=== PATIENT | male | born 1990 | race Caucasian/White ===

== ENCOUNTER 2021-06-13 09:51 | Emergency (ER) | payer BC, SELFPAY ==
[2021-06-13 09:51] VITALS: BP 141/92; PULSE 69; RESP 14; TEMP 36.2; O2SAT 97; BMI 21.8
--- NOTE | 2021-06-13 10:03 | US_ITS ---
STUDY: SCROTUM ULTRASOUND REASON FOR EXAM: Male, 30 years old. Left testicle pain TECHNIQUE: Ultrasound evaluation of the scrotum was performed with color Doppler and static root-scale imaging. COMPARISON: None. FINDINGS: RIGHT TESTICLE INTRATESTICULAR: There is a normal size of the right testicle. The right testicle measures 4 cm x 2.6 times by 2 cm. There is a homogenous echotexture. There is normal arterial and normal venous vascularity. There is no demonstrated right testicular mass or cyst. EXTRATESTICULAR: The epididymis is normal in size. The epididymis head measures 0.8 cm x 0.9 cm x 0.7 cm. There is normal vascularity of the epididymis. There is no demonstrated epididymal cystic structure. There is no demonstrated hydrocele. There is no demonstrated varicocele. There is no demonstrated extratesticular mass or cyst. LEFT TESTICLE INTRATESTICULAR: There is diffuse enlargement of the left testicle. The left testicle measures 6.5 cm x 4.8 cm x 4.5 cm. There is a heterogeneous echotexture. There is a 6.5 cm x 4.5 cm complex solid and cystic mass within the testes. A neoplastic process should be ruled out. There is increased arterial and increased venous vascularity. There is no demonstrated left testicular mass or cyst. EXTRATESTICULAR: The epididymis is normal in size. The epididymis head measures 1.1 cm x 1.6 cm x 1 cm. There is normal vascularity of the epididymis. There is no demonstrated epididymal cystic structure. There is a small hydrocele. There is no demonstrated varicocele. There is no demonstrated extratesticular mass or cyst. US/Testicular with Arterial Flow IMPRESSION: Enlarged testicle with a large testicular complex solid and cystic mass. Increased blood flow. A neoplastic process should be ruled out. Small left hydrocele. Electronically Signed: Zhang Ardon MD at 11:31 EST , Service support ,
--- NOTE | 2021-06-13 10:04 | EX.ED.GUMALE ---
HPI History of Present Illness Chief Complaint: Male Pain/Injury Detail of Chief Complaint: Left testicle pain and swelling Informant: patient Narrative Narrative: Patient presents to the emergency department with increased swelling to his left testicle for about a week. Patient states that the testicles become more painful. Patient tells me that about a year ago he had a bout of epididymitis and was treated with antibiotics but states that he is never quite been the same since that time. Patient has noticed some gradual and progressive increased swelling to the left testicle since that time. He denies any fevers. He denies dysuria. He did describe some lower abdominal discomfort and pain into his back. He denies any fevers. Patient denies any trauma to his testicle. PFSH PFSH Home Medications hydrocodone-acetaminophen 1 tab PO Q4H PRN PRN 3 Days #15 tablet 06/13/21 [Rx Last Taken Unknown] Allergy/AdvReac Type Severity Reaction Status Date / Time No Known Allergies Allergy Verified 06/13/21 09:53 Social History Smoking Status: Current some day smoker tobacco type: cigarettes ROS ROS ED Constitutional Constitutional ED: Reports systems reviewed and no addt'l complaints, except as documented; Denies body ache(s), change in weight or chills Eyes Eyes: Denies acute decrease in peripheral vision, change in vision, double vision or loss of vision ENT ENT ED: Reports none; Denies ear pain, lip swelling, loss taste/smell, neck pain, otalgia or sore throat Cardiovascular Cardiovascular: Reports none; Denies abdominal pain, chest pain with activity, leg edema, lightheadedness, palpitations, rapid heart rate or syncope Respiratory/Chest Respiratory/Chest: Reports none; Denies change in mental status, dry cough, dyspnea, hemoptysis, shortness of breath at rest or shortness of breath with exertion Gastrointestinal Gastrointestinal: Reports none; Denies abdominal pain, change in stool character, diarrhea, hematemesis, hematochezia, melena, rectal bleeding or vomiting Genitourinary Genitourinary ED: Reports none and other Details: Left testicle pain and swelling ; Denies abdominal discomfort, anuria, dysuria, genital pain or polyuria Musculoskeletal Musculoskeletal: Reports none; Denies arthralgias, back pain, difficulty walking, extremity pain, muscle weakness or myalgias Integumentary Reports none; Denies abscess or rash Neurologic Neurologic: Reports none; Denies abnormal gait, confusion, focal weakness, frequent falls, headache(s), loss of vision, numbness, paresthesias, radicular pain, vertigo or weakness Psychiatric Psychiatric: Reports systems reviewed and no addt'l complaints, except as documented and none; Denies behavioral changes, confusion, difficulty concentrating, hallucinations, suicidal ideation, tactile hallucinations or visual hallucinations Endocrine Endocrinology: Denies none, cold intolerance, excessive sweating, fatigue or heat intolerance Hematologic/Lymphatic Hematologic/Lymphatic: Reports none; Denies anemia, easy bleeding or easy bruising Allergic/Immunologic Allergic/Immunologic ED: Denies as per HPI, none, lip swelling, mouth swelling, throat swelling, tongue swelling or hives EXAM Physical Exam Const Vital Signs: 06/13/21 09:51 Temperature 97.2 F L Temperature Source Temporal Pulse Rate 69 Respiratory Rate 14 Blood Pressure 141/92 H Blood Pressure Mean 108 Pulse Ox 97 Oxygen Delivery Method Room Air Positive well nourished and well developed General Appearance ED: well developed and NAD HEENT Reports TM's clear and moist mucous membranes normocephalic and atraumatic; Negative for trauma or tenderness Tympanic Membrane ED: Yes TM's clear Eyes PERRL and EOMs intact bilaterally General Eye ED: Negative for pale conjunctiva or scleral icterus Neck no lymphadenopathy, supple and no JVD General: Negative for tenderness Chest Wall inspection of chest normal and palpation of chest normal Chest: Negative for tenderness Resp normal respiratory effort and clear to auscultation bilaterally Effort and Inspection: Negative for respiratory distress or pain with movement Auscultation: Negative for rhonchi, wheezes or diminished lung sounds Cardio regular rate, regular rhythm, S1 normal heart sound, S2 normal heart sound and no murmurs Peripheral Pulses: pulses 2+ throughout GI normal to inspection, nondistended, normoactive bowel sounds, soft to palpation, non-tender, non-distended and no masses Narrative: Circumcised male. Patient has significant tenderness over the left testicle which is enlarged and firm to palpation. He is got some tenderness over the left epididymis as well. No cellulitis noted. Back/Spine no CVA tenderness and no thoracic nor lumbar tenderness Extremity normal to inspection General Extremety ED: Negative for edema General Extremity: Negative for edema Neuro oriented x3, CN's II-XII intact bilaterally, no sensory deficits noted and gait normal Sensorium / Orientation: awake, alert, oriented to person, oriented to place and oriented to time Motor Exam: strength 5/5 throughout and strength abnormal Psych mental status grossly normal Skin no rashes or lesions noted and no wounds MDM MDM MDM Narrative Medical decision making narrative: IV line established on arrival. Patient was noted on ultrasound to have enlarged testicle with large testicular complex solid and cystic mass. I do not have urology available on-call today. I will refer him to local urologist for follow-up and I will have him call the office to make a follow-up appointment. He will need further work-up and evaluation of this testicular mass to rule out malignancy. Patient understands this and will follow up. He will be given a prescription for [place] for pain. Lab Data Attestation: I reviewed the patient's lab results. Labs: Laboratory Results - last 24 hr 06/13/21 06/13/21 06/13/21 10:20 10:25 10:25 WBC 7.6 RBC 5.36 Hgb 16.1 Hct 46.4 MCV 86.6 MCH 30.0 MCHC 34.7 RDW Std Deviation 36.4 RDW Coeff of Phil 11.4 L Plt Count 411 MPV 8.5 Immature Gran % (Auto) 0.400 Neut % (Auto) 75.3 H Lymph % (Auto) 14.6 L Dillon % (Auto) 7.8 Eos % (Auto) 1.5 Baso % (Auto) 0.4 Absolute Neuts (auto) 5.7 Absolute Lymphs (auto) 1.10 Nucleated RBC % 0 Sodium 137 Potassium 3.8 Chloride 105 Carbon Dioxide 26.0 Anion Gap 6 BUN 19 H Creatinine 1.06 Estim Creat Clear Calc 99.45 Est GFR (MDRD) Af Amer 105 Est GFR (MDRD) Non-Af 87 BUN/Creatinine Ratio 17.9 Glucose 99 Calcium 9.5 Urine Color Yellow Urine Clarity Clear Urine pH 6.5 Ur Specific [place] 1.010 Urine Protein Negative Urine Glucose (UA) Normal Urine Ketones Negative Urine Occult Blood Negative Urine Nitrite Negative Urine Bilirubin Negative Urine Urobilinogen Normal Ur Leukocyte Esterase Negative Urine RBC 0 SEEN Urine WBC 0 SEEN Ur Squamous Epith Cells 0 SEEN Urine Bacteria 0 SEEN Urine Mucus 0 SEEN Radiography Diagnostic Testing: Clinical Impression(s) from Imaging Studies Testicular Ultrasound 06/13/21 10:03 IMPRESSION: Enlarged testicle with a large testicular complex solid and cystic mass. Increased blood flow. A neoplastic process should be ruled out. Small left hydrocele. Electronically Signed: Zhang Ardon MD at 11:31 EST , Service support , Discharge Plan Triage Chief Complaint: Male Pain/Injury ED Provider: Philomena Mendez Dx/Rx/DC Orders Clinical Impression: Mass of left testicle Prescriptions: New hydrocodone-acetaminophen [hydrocodone-acetaminophen] 1 TABLET tablet 1 tab PO Q4H PRN PRN (Reason: Pain) 3 Days Qty: 15 RF: 0 Primary Care Provider: Care Physician,No Primary Referrals: Juan Hughes MD [STAFF PHYSICIAN] - 3-5 Days Care Physician,No Primary [Primary Care Provider] - Activity Restrictions/Additional Instructions: You have a mass in your left testicle and will need further work-up and evaluation by urology to rule out malignancy or cancer Disposition Disposition: Home, Self Care
[2021-06-13 10:37] LABS: Bacteria 0 SEEN /hpf (None Seen); Mucous, Urine 0 SEEN /hpf (<or=2+); Red Blood Cells-Urine 0 SEEN /hpf (0-5); Squamous Epithelial Cells - UA 0 SEEN /hpf (0-5); White Blood Cells 0 SEEN /hpf (0-5)
[2021-06-13 10:39] LABS: Absolute Neutrophil Count 5.7 X10^3/uL (2.0-7.7); Basophil# 0.03 X10^3/uL; Basophil% 0.4 % (0-1); Eosinophil# 0.11 X10^3/uL; Eosinophils% 1.5 % (0-5); Hematocrit 46.4 % (40-54); Hemoglobin 16.1 g/dL (13.0-16.5); Lymphocyte % 14.6 % (19-41); Mean Corp Hgb Conc 34.7 g/dL (32-36); Mean Corpuscular Volume 86.6 fL (80-94); Mean Platelet Vol. 8.5 fl (6.2-12.0); Monocyte# 0.59 X10^3/uL; Monocyte% 7.8 % (0-10); NRBC Flagged by Analyzer 0 % (0-5); Neutrophil % 75.3 % (47-70); Platelet Count 411 K/mm3 (150-450); RBC Distribution Width CV 11.4 % (11.6-14.6); RBC Distribution Width SD 36.4 fl (35.1-43.9); Red Blood Count 5.36 M/mm3 (4.6-6.2); White Blood Count 7.6 K/mm3 (4.4-11.0)
[2021-06-13 10:41] LABS: Color, Urine Yellow (Yellow); Glucose, Dipstick Normal (Normal); Ketone-Dipstick Negative (Negative); Leukocyte Esterase-Dipstick Negative /ul (Negative); Nitrite-Dipstick Negative (Negative); Occult Blood-Urine Negative /ul (Negative); Protein-Dipstick Negative (Negative); Urine Bilirubin Dipstick Negative (Negative); Urine Clarity Clear (Clear); Urine Urobilinogen Normal (Normal); Urine pH 6.5 (5.0 - 8.0)
[2021-06-13 10:59] LABS: Anion Gap 6 (5-15); BUN 19 mg/dL (7-18); BUN/Creat Ratio 17.9 RATIO (10-20); Calcium,Total 9.5 mg/dL (8.5-10.1); Chloride 105 mmol/L (98-107); Creatinine, Serum 1.06 mg/dL (0.70-1.30); EST Glomerular Filtration Rate 87 mL/min (>60); Est Glom Filt Rate - Afr Amer 105 mL/min (>60); Estimated Creatinine Clearance 99.45 ml/min; Glucose 99 mg/dL (74-106); Potassium 3.8 mmol/L (3.5-5.1); Sodium Level 137 mmol/L (136-145)
[2021-06-13 12:14] VITALS: BP 144/94; PULSE 78
== END 2021-06-13 12:20 | disposition home or self-care (01) ==
PROVIDERS: Emergency Provider Emergency Medicine
DX: N50.9 Disorder of male genital organs, unspecified (principal); N43.3 Hydrocele, unspecified; N50.812 Left testicular pain; F17.210 Nicotine dependence, cigarettes, uncomplicated
CPT/HCPCS: 76870; 80048; 81001; 85025; 87086; 93976; 99284; J7030

== ENCOUNTER → 2021-06-14 16:36 | Outpatient (CLI) | payer BC, SELFPAY ==
[2021-06-14 17:05] LABS: Hematocrit 46.7 % (40-54); Mean Corp Hgb Conc 34.3 g/dL (32-36); Mean Corpuscular Volume 87.6 fL (80-94); Mean Platelet Vol. 8.4 fl (6.2-12.0); Platelet Count 439 K/mm3 (150-450); RBC Distribution Width CV 11.7 % (11.6-14.6); RBC Distribution Width SD 37.4 fl (35.1-43.9); Red Blood Count 5.33 M/mm3 (4.6-6.2); White Blood Count 8.7 K/mm3 (4.4-11.0)
[2021-06-14 17:56] LABS: Anion Gap 9 (5-15); BUN 21 mg/dL (7-18); BUN/Creat Ratio 19.3 RATIO (10-20); Calcium,Total 9.3 mg/dL (8.5-10.1); Chloride 101 mmol/L (98-107); Creatinine, Serum 1.09 mg/dL (0.70-1.30); EST Glomerular Filtration Rate 84 mL/min (>60); Est Glom Filt Rate - Afr Amer 102 mL/min (>60); Glucose 91 mg/dL (74-106); LDH 270 U/L (87-241); Potassium 3.6 mmol/L (3.5-5.1); Sodium Level 137 mmol/L (136-145)
[2021-06-16 11:12] LABS: HCG BETA-SUBUNIT QUANT. 16 mIU/mL (0-3)
== END ==
PROVIDERS: Visit Provider Urology
DX: N50.9 Disorder of male genital organs, unspecified (principal)
CPT/HCPCS: 36415; 80048; 82105; 83615; 84702; 85027

== ENCOUNTER → 2021-06-19 09:44 | Outpatient (CLI) | payer BC, SELFPAY ==
[2021-06-19 15:10] LABS: Specimen Processing Control PASS
== END ==
PROVIDERS: Referring Provider Urology; Visit Provider Urology
DX: U07.1 COVID-19 (principal)
CPT/HCPCS: 87635; C9803; U0005; U0003

== ENCOUNTER 2021-06-20 06:56 | Observation (INO) | payer BC, SELFPAY ==
[2021-06-20] VITALS (9 sets, daily range): BP systolic 121–155; BP diastolic 70–83; PULSE 75–103; RESP 16–18; TEMP 36.8–38.3; O2SAT 96–100; BMI 21.2; BMI 20.8
--- NOTE | 2021-06-20 | TEST_PTH ---
PATIENT: ELOISE JO LOC: MS3 U#:[id number] AGE/SX: 30/M ROOM: MN315 RE06/20/[address]: Dr. Juan Hughes MD : 1990 BED: 1 DIS: 06/20/2021 SPEC #: [id number] RECD: 06/21/21 10:19 STATUS: MONICA MAGDA #: [id number] MELISSA: 06/20/21 00:[address]: Juan Hughes DEPT: SURGICAL PATHOLOGY RECD BY: Lexis Chowdhury ENTERED: 06/21/21 10:34 SP TYPE: TESTICLE OTHR DR: No Primary Care Phys Tissues: Testis, NOS Procedures: Surgery Specimen Level HEADER OPERATION: Left radical inguinal orchiectomy PRE-OP DIAGNOSIS: Left testicular mass TISSUE SUBMITTED: Left testicle MICROSCOPIC DIAGNOSIS Left testicle, radical orchiectomy: Nonseminomatous germ cell tumor. Synoptic report to follow. AM:patricia 06/26/2021 COMMENT Immunohistochemistry ([id number]) supports the above diagnosis. Additional immunohistochemical stains and complete synoptic report will soon follow. This case was discussed with Dr. Hughes by Dr. Cameron 06/26/21. MICROSCOPIC DESCRIPTION Slides are reviewed. GROSS DESCRIPTION Received in fixative is one container labeled with the patient's name and designated left testicle. The specimen consists of a testis surrounded by soft tissue. The specimen is aggregate weighs 136 gm. The specimen measures 8 x 7 x 5 cm. A portion of spermatic cord and adjacent soft tissue extends for a distance of 6 cm and has a diameter of 2 cm. Serial sectioning reveals the testis to be involved by a rubbery, white mass that occupies greater than 90% of the testis. Distinct rete testis or epididymis are not grossly identified. The lesion appears to be confined to the testis with no involvement of testicular membranes. The external surface has been inked in black ink. The mass measures 6.5 x 5 x 4 cm. The cut surface of the mass is fleshy. No areas of necrosis or hemorrhage are identified within the mass. Soft Water [employer]ic sections are submitted in ten cassettes as follows: 1 ? spermatic cord and soft tissue at margin of resection, 2 ? tumor with presumed adjacent epididymis, 3-10 ? graphic art sales representative sections of mass and adjacent uninvolved testicular tissue. / AM:patricia 06/22/21 TC:0 CPT: 07802 ADDENDUM ADDENDUM ADDENDUM ADDENDUM ADDENDUM ADDENDUM ADDENDUM ADDENDUM ADDENDUM ADDENDUM ADDENDUM ADDENDUM ADDENDUM ADDENDUM ADDENDUM ADDENDUM ADDENDUM ADDENDUM ADDENDUM ADDENDUM ADDENDUM ADDENDUM ADDENDUM ADDENDUM ADDENDUM ADDENDUM ADDENDUM ADDENDUM ADDENDUM ADDENDUM ADDENDUM ADDENDUM ADDENDUM ADDENDUM ADDENDUM 07/10/2021 12:24 ADDENDUM 07/10/2021 12:24 ADDENDUM 07/10/2021 12:24 ADDENDUM 07/10/2021 12:24 ADDENDUM 07/10/2021 12:24 SURGICAL PATHOLOGY CANCER CASE SUMMARY (SYNOPTIC REPORT) Specimen: Left testis, radical orchiectomy Tumor focality: Unifocal Tumor Size: 6.5 x 5 x 4 cm 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 Embryonal carcinoma: Approximately 5% Intratubular germ cell neoplasia: Germ cell neoplasia in situ is focally present. Tumor extension: Tumor limited to testis. Margins: Spermatic cord margin: Free of carcinoma Other margins: Uninvolved by tumor Lymphvascular invasion: Not identified Regional lymph nodes: No lymph nodes found. Serum tumor markers: LD ? 270 U/L AFP ? 977 ng/mL Beta HCG ? 16 mIU Additional pathologic findings: Mild chronic inflammation. Ancillary studies; Immunohistochemistry ([id number]) PATHOLOGIC STAGE: T2 Nx Mx The above summary is in compliance with [employer] of [place] Path[employer] (CAP) Cancer Protocols Checklist and [place] Joint Committee on Cancer (AJCC), Staging Manual, 8th Ed. The rete testis and cauda epididymis are not identified and presumed to be involved by carcinoma. The tumor is confined to the testis. This case was seen in consultation with Dr. Andrews of [employer] [employer]. The complete consultative report is viewable in EMR. Case has been reviewed in consultation with Dr. Swan who concurs with the above diagnosis. IDC:SJ
--- NOTE | 2021-06-20 | IMM_PTH ---
PATIENT: ELOISE JO LOC: MS3 U#:[id number] AGE/SX: 30/M ROOM: SC315 RE06/20/[address]: Dr. Juan Hughes MD : 1990 BED: 1 DIS: 06/20/2021 SPEC #: [id number] RECD: 06/25/21 14:19 STATUS: MONICA MAN #: [id number] MELISSA: 06/20/21 00:[address]: Juan Hughes DEPT: IMMUNOHISTOCHEMISTRY RECD BY: Anjali Jackson ENTERED: 06/25/21 14:20 SP TYPE: IMMUNO OTHR DR: No Primary Care Phys Tissues: Testis, NOS Procedures: JENNA (add) Pankeratin (add) GATA3 (add) CD30 (initial) PHYSICIAN & INSTITUTION [place] [id number] SPECIMEN INFORMATION: Tissue Source: Left testicle Clinical Info: Left testicular mass Specimen Number: [id number] #8 CPT code: 69884, 12614 x3 METHODOLOGY: Deparaffinized sections of prefer/formalin-fixed tissue or PAP/DQ stained slides are incubated with monoclonal/polyclonal antibodies/oligonucleotide probes. Localization is made via biotin free immunoperoxidase method. Appropriate controls are performed and reacted as expected. Results on target cell population are indicated in the following table: RESULTS: ANTIBODY / CLONE RESULT Block 8 CD30 (Ross-H2) positive, dim AE1-3 (AE1/AE3/PCK26) positive JENNA (E29) positive, focal GATA3 (L50-823) positive, focal These tests were developed and their performance characteristics determined by [facility]. They may not have been cleared or approved by the U.S. Food and Drug Administration. The FDA has determined that such clearance or approval is not necessary. The above immunohistochemical/dualISH markers are ordered and reviewed by the Pathologist. 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 AM:patricia 07/10/2021 Case has been reviewed in consultation with Dr. Swan who concurs with the above diagnosis. IDC:[id number]
--- NOTE | 2021-06-20 07:42 | EX.ED.GUMALE ---
HPI History of Present Illness Chief Complaint: Male Pain/Injury Informant: patient Pain Onset: Days Context: Gradual Onset Timing: Continuous Current Severity: Moderate Maximum Severity: Severe Narrative Narrative: 30-year-old male history of strongly suspected left testicular cancer from a known left testicular mass that was diagnosed a week or so ago. He is followed up with urology who is actually planning on doing his surgery and doing orchiectomy today. Patient's had worsening pain over the last several days. He is on Percocet at home and says not controlling his pain. He denies any dysuria. He denies other complaints. Prior similar symptoms: Yes Recent Illness/Hospitalization: No PFSH PFSH Medical History High cholesterol Testicle cancer Home Medications hydrocodone-acetaminophen 1 tab PO Q4H PRN PRN 3 Days #15 tablet 06/13/21 [Rx Last Taken Unknown] Allergy/AdvReac Type Severity Reaction Status Date / Time No Known Allergies Allergy Verified 06/13/21 09:53 Social History Smoking Status: Current some day smoker tobacco type: cigarettes ROS ROS ED ROS Narrative Denies recent illness. Review of Systems ROS Unobtainable: Denies due to encephalopathy Constitutional Constitutional ED: Reports fever(s) and subjective Eyes Eyes: Denies change in vision ENT ENT ED: Denies ear pain or sore throat Cardiovascular Cardiovascular: Denies chest pain Respiratory/Chest Respiratory/Chest: Denies cough or dyspnea Gastrointestinal Gastrointestinal: Denies abdominal pain, diarrhea, nausea or vomiting Genitourinary Genitourinary ED: Denies dysuria Musculoskeletal Musculoskeletal: Denies myalgias Integumentary Denies rash Neurologic Neurologic: Denies headache(s) Psychiatric Psychiatric: Denies depression Endocrine Endocrinology: Denies polyuria Hematologic/Lymphatic Hematologic/Lymphatic: Denies easy bruising Allergic/Immunologic Allergic/Immunologic ED: Denies urticaria EXAM Physical Exam Narrative Exam Narrative: 3-year-old male no acute distress vital signs stable afebrile. HEENT exam unremarkable. Neck nontender no lymphadenopathy. Lungs clear to auscultation bilaterally. Heart regular rhythm no murmur. Abdomen soft nontender tender, nondistended, normal bowel sounds no peritoneal signs. Tender exam circumcised male right hemiscrotum unremarkable nontender left hemiscrotum enlarged, firm mass with tenderness. No cellulitis. No inguinal lymphadenopathy. Exam is consistent with a left testicular mass very possibly testicular cancer. Moving all 4 extremities. Nontender no edema. Neurologically is awake and alert. Const Vital Signs: 06/20/21 06:57 Temperature 98.2 F Temperature Source Oral Pulse Rate 96 Respiratory Rate 18 Blood Pressure 155/83 H Blood Pressure Mean 107 Pulse Ox 100 Oxygen Delivery Method Room Air Positive well nourished and well developed; Negative for obese, cachectic, contractures or unkempt General Appearance ED: well developed and NAD; Negative for unkempt, cachectic, contractures or pallor Nutritional Appearance: Negative for cachectic or obese HEENT Reports moist mucous membranes normocephalic and atraumatic; Negative for trauma or tenderness Eyes PERRL and EOMs intact bilaterally General Eye ED: Negative for pale conjunctiva or scleral icterus Neck no lymphadenopathy, supple and no JVD General: Negative for tenderness Resp normal respiratory effort and clear to auscultation bilaterally Auscultation: Negative for rales, rhonchi or wheezes Cardio regular rate, regular rhythm, S1 normal heart sound, S2 normal heart sound and no murmurs GI non-tender, non-distended and no masses Auscultation: normoactive bowel sounds; Negative for hyperactive bowel sounds Palpation: soft Rectal Exam: Negative for tenderness no CVA tenderness Penis: normal penis, circumcised and mass; Negative for uncircumcised, condyloma, corporal disruption or ecchymosis Meatus: meatus normal Scrotum: testes descended bilaterally, scrotal swelling and scrotal mass Back/Spine no CVA tenderness Extremity normal to inspection General Extremety ED: Negative for edema or tenderness General Extremity: Negative for edema Neuro oriented x3, moves all extremities and no focal motor deficits Sensorium / Orientation: alert, oriented to person, oriented to place and oriented to time Motor Exam: strength 5/5 throughout Psych mental status grossly normal Appearance: Negative for unkempt Skin General Skin Exam: Negative for jaundice or pallor Lesions: no lesions Rashes: no rashes MDM MDM MDM Narrative Medical decision making narrative: 30-year-old male pending orchiectomy for strongly suspected left testicular cancer with a known mass. We treated IV morphine. I will speak to his urologist about sending him down to the preop area once we are done with him in the emergency department. I spoke to Dr. Henrry Hughes and the patient will be admitted to his service pending his surgery today and further work-up for suspected testicular cancer. Discharge Plan Dx/Rx/DC Orders Clinical Impression: Mass of left testicle, Testicular pain Disposition Disposition: Acute Care Hospital [facility]
[2021-06-20] MEDS: Ondansetron 4 MG/2 ML Vial IV (07:48)
[2021-06-20] MEDS: morphine 10 MG/ML Syringe IV (07:48)
--- NOTE | 2021-06-20 08:23 | NURSING ---
MED SURG BEFORE SURGERY SHAI TESTICULAR CA, PAIN
--- NOTE | 2021-06-20 08:38 | CT_ITS ---
STUDY: CT ABDOMEN AND PELVIS WITH CONTRAST REASON FOR EXAM: Male, 30 years old. Testicle mass and elevated markers RADIATION DOSAGE (If Supplied By Facility): CTDIvol = ( 14.91 ) mGy, DLP = ( 633.96 ) mGycm TECHNIQUE: Transaxial images were obtained from the dome of the diaphragm to the symphysis pubis without oral contrast. IV 100mL Isovue-370 was administered. Sagittal and coronal images were reconstructed. Individualized dose optimization techniques were used for this CT. COMPARISON: None. FINDINGS: The visualized lung bases are unremarkable. The visualized portions of the heart are within normal limits. Normal liver. Normal gallbladder and extrahepatic biliary system. Normal spleen. Normal pancreas. Normal bilateral adrenal glands. Normal right kidney. Normal left kidney. Normal visualized stomach. Normal small intestine. There are multiple colonic diverticula consistent with diverticulosis. The appendix is visualized and appears normal. Normal abdominal aorta. Normal inferior vena cava. There is retroperitoneal lymphadenopathy with enlarged nodes greater than 10-15mm in the short axis. Normal urinary bladder. Complex heterogeneous enhancing mass in the left hemiscrotum in keeping with patient''s history of a left testicular carcinoma. Small left hydrocele. Normal abdominal wall. Normal osseous structures. CT/Abdomen/Pelvis W IV Cont ONLY IMPRESSION: There is evidence of pathologic retroperitoneal lymph adenopathy. Heterogeneous enhancing mass in the left testicle with a small hydrocele. Electronically Signed: Zhang Ardon MD at 9:32 EST , Service support ,
[2021-06-20] MEDS: morphine 8 MG/ML Syringe IV (10:56)
--- NOTE | 2021-06-20 16:33 | NURSING ---
PT TAKEN TO OR AT 1621
[2021-06-20] MEDS: Lactated Ringers 1,000 ML 15 ML IV (16:45)
[2021-06-20] MEDS: Bupivacaine Mpf 0.5% 30 ML VIAL (16:56)
--- NOTE | 2021-06-20 17:39 | PCM.HP.STD ---
HPI - General General Date of Admission: 06/20/21 HPI Narrative ELOISE JO, is a 30 M who presents with covid ++ fever and recent mass in the left testicle admitted to hospital for furthe care, going to surgery today for orchiectomy and will do CT scan for staging [facility] Medical History High cholesterol Testicle cancer Home Medications hydrocodone-acetaminophen 1 tab PO Q4H PRN PRN 3 Days #15 tablet 06/13/21 [Rx Last Taken Unknown] oxycodone-acetaminophen [Endocet] 1 tab PO Q6H PRN 7 Days #14 tab 06/20/21 [Rx Last Taken Unknown] Allergy/AdvReac Type Severity Reaction Status Date / Time No Known Allergies Allergy Verified 06/13/21 09:53 Social History Smoking Status: Current some day smoker tobacco type: cigarettes ROS ROS Narrative New constant back pain. Vital Signs Vital Signs Vital Signs: 06/20/21 06:57 06/20/21 09:10 06/20/21 10:48 Temperature 98.2 F 98.2 F Temperature Source Oral Oral Pulse Rate 96 84 75 Respiratory Rate 18 18 16 Blood Pressure 155/83 H 148/72 H 135/80 H Blood Pressure Mean 107 97 98 Blood Pressure Source Blood Pressure Position Blood Pressure Location Pulse Ox 100 100 99 Oxygen Delivery Method Room Air Room Air Room Air 06/20/21 16:09 Temperature 101.0 F H Temperature Source Oral Pulse Rate 97 Respiratory Rate 16 Blood Pressure 129/79 H Blood Pressure Mean 95 Blood Pressure Source Monitor Blood Pressure Position Supine Blood Pressure Location Right Arm Pulse Ox 97 Oxygen Delivery Method Room Air Weight Weight: 65.998 kg Body Mass Index (BMI) 20.8 Physical Exam Narrative large hard mass in the left testicle rest of exam normal. Results Radiology Impression Abdomen/Pelvis CT 06/20/21 08:38 IMPRESSION: There is evidence of pathologic retroperitoneal lymph adenopathy. Heterogeneous enhancing mass in the left testicle with a small hydrocele. Electronically Signed: Zhang Ardon MD at 9:32 EST , Service support , Assessment & Plan Assessment/Plan (1) Mass of left testicle: (2) Testicular pain:
--- NOTE | 2021-06-20 17:41 | PCM.DC ---
Discharge Instructions Diet Discharge Diet: No restrictions Activity Discharge Activity: May Not Drive (while taking narcotic pain medications.) Lifting Restrictions: no lifting > 10 lbs Dressing / Incision Call your doctor if you observe: Fever of 101 or Higher Follow Up Care Please Follow Up With: Juan Hughes MD Test Results: will call you with test results and arrange for further care for testicle cancer Discharge Plan Admission Admit Date/Time: 06/20/21 08:38 Primary Reason for Your Visit: covid and testicle cancer Attending Provider: Juan Hughes Primary Care Provider: Care Physician,No Primary Discharge Orders/Prescriptions Prescriptions: New oxycodone-acetaminophen [Endocet] 5-325 mg tablet 1 tab PO Q6H PRN (Reason: pain) 7 Days Qty: 14 RF: 0 No Action hydrocodone-acetaminophen [hydrocodone-acetaminophen] 1 TABLET tablet 1 tab PO Q4H PRN PRN (Reason: Pain) 3 Days Qty: 15 RF: 0 Referrals / Follow Up: Juan Hughes MD [STAFF PHYSICIAN] - Care Physician,No Primary [Primary Care Provider] - Disposition Discharge Orders: Discharge Patient (Routine); Ordered 06/20/21 Ordered By: Dr. Juan Hughes
--- NOTE | 2021-06-20 17:43 | OP.PCM_ITS ---
Report of Operation Date of Procedure: 06/20/21 Pre-Operative Diagnosis: Left hard testicle mass, Abnormally elevated alpha-fet oprotein and beta-hCG and LDH, New back pain Post-Operative Diagnosis: Same Surgery/Procedure Performed:: Left radical orchiectomy Description of Surgical Findings:: Patient was seen in the preoperative area, he has an abnormal left testicle which on exam is abnormal and also has a ultrasound is abnormal on the left side. Because of this we discussed the potential risk for malignancy and working to proceed with a radical orchiectomy on the left side. He understands is possible that the testicle even the looks abnormal and feels abnormal may not be cancerous it could be scar tissue it could be inflammation or infection. He understands no guarantee that it is cancer. Also there is no guarantees that if we remove the testicle and he has cancer is cured and the patient may require more treatments such as chemotherapy and radiation if he does have testicle cancer. Preoperative tumor markers were drawn. We discussed the risk of the procedure including risk of getting a hernia at the site of surgery, infection or bleeding. We also discussed the possibility of low testosterone level and infertility with one testicle. Patient was taken back to the operating room at the smooth induction of anesthesia. The penis and genitals were prepped and draped in usual sterile fashion, the abdomen was shaved as well as the testicles were shaved. The side of the orchiectomy which is the left side was marked. A timeout was performed. I then made a inguinal incision on the left side, dissected through the skin superficial fat Pratik's fascia with it was then incised there was a small blood vessel across Pratik's fascia that was cauterized and suture-ligated. The I then came across the top of the inguinal canal and opened up the inguinal canal with a joker. We then encircled the blood vessels and performed high ligation of the testicle I then dissected out the testicle on the left side and delivered it from the testicle through the inguinal incision. A very small incision in the scrotum was created with dissecting out the mass this was closed with chromic stitches, there was no violation of the testicle mass. We then dissected using electrocautery to free the testicle from the scrotum and transected through the gubernaculum. And the testicle was placed into a container and sent to pathology. We then made sure that the vessels were clear and there were not bleeding we irrigated the wound we closed the anterior layer of the inguinal canal with interrupted stitches and then we closed the Pratik's fascia and then closed the skin with subcuticular stitches. All needles stitches were accounted for. There was a complete count at the end of the case after closure. Patient was taken back to the PACU in stable condition. Surgeon: Ellen Type of Anesthesia: General Admit VTE Documentation VTE Present on Admission: No VTE Mechan Device Prophylaxis: SCD's VTE Pharm Prophylaxis ordered?: No
--- NOTE | 2021-06-20 19:51 | NURSING ---
AMBULATED TO BR. DRANK SOME WATER. ABLE TO URINATE W/OUT DIFFICULTY.
== END 2021-06-20 20:49 | disposition home or self-care (01) ==
LOC: ED 07:48 → MS2 12:41 → MS3 16:15
PROVIDERS: Admitting Provider Urology; Emergency Provider Emergency Medicine; Visit Provider Urology
PROC: (CPT 54520; principal; 2021-06-20 09:55)
DX: C62.92 Malignant neoplasm of left testis, unspecified whether descended or undescended (principal); U07.1 COVID-19; E78.00 Pure hypercholesterolemia, unspecified; F17.210 Nicotine dependence, cigarettes, uncomplicated
CPT/HCPCS: 54530; 74177; 88309; 88341; 88342; 96374; 96375; 96376; 99218; 99284; 99406; J7030; J7120; Q9967; A4216; G0378; J2405

== ENCOUNTER → 2021-06-21 12:07 | Outpatient (CLI) | payer BC, SELFPAY ==
--- NOTE | 2021-06-21 12:22 | RAD_ITS ---
STUDY: X-RAY - ABDOMEN/PELVIS REASON FOR EXAM: Male, 30 years old. MALIGNANT NEOPLASM DESCENDED LFT TESTIS TECHNIQUE: Single AP view of the abdomen / pelvis. COMPARISON: None. FINDINGS: Normal visualized lung bases. There is an unremarkable bowel gas pattern. There is no demonstrated free abdominal air. The visualized liver, spleen and kidneys are grossly normal in size and morphology. Normal soft tissue structures. Normal visualized osseous structures. RAD/Abdomen Single View IMPRESSION: Normal x-ray examination of the abdomen and pelvis. Electronically Signed: Bud Borrego MD (Brooks) at 14:58 EST , Service support ,
--- NOTE | 2021-06-21 12:22 | RAD_ITS ---
STUDY: X-RAY - PELVIS REASON FOR EXAM: Male, 30 years old. Left testicular ca., pain left hip post op TECHNIQUE: One view of the pelvis was obtained. COMPARISON: None. FINDINGS: There is a non-specific bowel gas pattern. Normal visualized soft tissue structures. Sclerotic lesions of the bilateral proximal femurs without periosteal reaction. Normal bilateral iliac wings, sacroiliac joints and visualized sacrum. Normal visualized bilateral superior and inferior pubic rami. Normal pubic symphysis. Normal ischial tuberosities. Normal visualized right femoral head. Normal right acetabulum. Normal right hip joint. Normal visualized left femoral head. Normal left acetabulum. Normal left hip joint. RAD/Pelvis 1 or 2 Views IMPRESSION: 1. No destructive bony process. 2. Bilateral proximal femoral sclerotic lesions are nonspecific but likely represent bone islands. Electronically Signed: Bud Borrego MD (Brooks) at 14:58 EST , Service support ,
== END ==
LOC: RAD 12:07
PROVIDERS: Visit Provider Urology
DX: C62.12 Malignant neoplasm of descended left testis (principal)
CPT/HCPCS: 72170; 74018

== ENCOUNTER → 2021-07-20 07:22 | Outpatient (CLI) | payer BC, SELFPAY ==
--- NOTE | 2021-07-20 07:23 | CT_ITS ---
STUDY: CT CHEST, ABDOMEN T PELVIS WITH CONTRAST REASON FOR EXAM: Male, 30 years old. STAGING TESTICULAR CANCER RADIATION DOSAGE (If Supplied By Facility): CTDIvol = ( 11.78 ) mGy, DLP = ( 786.10 ) mGycm TECHNIQUE: Transaxial imaging was performed following intravenous administration of IV 100mL Isovue-370. Individualized dose optimization techniques were used for this CT. COMPARISON: Comparison is made with prior examination dated 06/20/2021. FINDINGS: CHEST Small benign-appearing bilateral axillary lymph nodes. There is a 5 mm noncalcified nodule in the posterior aspect of the right upper lobe abutting the right minor fissure as seen on axial image #52. There is a 5.9 mm noncalcified nodule in the posterior medial segment of the left lower lobe as seen on axial image #62. There is also evidence of a 7.1 mm noncalcified nodule in the posterior medial segment of the right lower lobe as seen on axial image #70. There is no demonstrated pleural abnormality. Normal heart and pericardium. Normal mediastinum. Normal hilar regions. Normal unenhanced pulmonary arteries. Normal aorta arch and descending thoracic aorta. Normal osseous structures. There is no demonstrated abnormality of the visualized upper abdomen. ABDOMEN Normal liver. Normal gallbladder and extrahepatic biliary system. Normal spleen. Normal pancreas. Normal bilateral adrenal glands. Normal right kidney. Normal left kidney. Normal visualized stomach. Normal small intestine. Normal colon. The appendix is visualized and appears normal. Normal abdominal aorta. Normal inferior vena cava. There is retroperitoneal lymphadenopathy with enlarged nodes greater than 10-15mm in the short axis. These are unchanged. Normal abdominal wall. Normal osseous structures. PELVIS Normal urinary bladder. The patient is status post left orchiectomy. Normal visualized small intestine. Normal visualized colon. There is no pelvic fluid. There is no pelvic lymphadenopathy or mass lesion. Normal visualized pelvic arteries. Normal abdominal wall. Normal osseous structures. CT/CT Chest, Abd, Pel w/Contrast IMPRESSION: Pulmonary nodules as described. Stable retroperitoneal lymphadenopathy. Electronically Signed: Zhang Ardon MD at 9:23 EST , Service support ,
== END ==
LOC: CT 07:22
PROVIDERS: Referring Provider Internal Medicine Medical Oncology; Visit Provider Internal Medicine Medical Oncology
DX: C62.12 Malignant neoplasm of descended left testis (principal)
CPT/HCPCS: 71260; 74177; Q9967

== ENCOUNTER → 2021-07-23 07:18 | Outpatient (CLI) | payer BC, SELFPAY ==
--- NOTE | 2021-07-23 07:19 | MRI_ITS ---
STUDY: MRI BRAIN WITH AND WITHOUT CONTRAST REASON FOR EXAM: Male, 30 years old. STAGING TESTICULAR CANCER TECHNIQUE: Standardized multiplanar fat and water weighted pulse sequences were obtained. IV 13cc dotarem was administered for the contrast portion of the examination. COMPARISON: None. FINDINGS: Normal size of the ventricles and extra-axial spaces for the patient''s age. Normal white matter tracts of the supratentorial brain. Normal bilateral basal ganglia. Normal thalami. There is no extra-axial fluid accumulation. Normal venous enhancement. There is no enhancing intra-axial or extra-axial abnormality. Normal sella turcica, pituitary gland, infundibular stalk, optic chiasm and hypothalamus. Normal tectal plate and pineal gland. Normal midbrain, tawnya and medulla. Normal cerebellum. Normal basal cisterns. MRI/Brain W/WO Contrast IMPRESSION: Unremarkable unenhanced and enhanced MRI of the brain. Electronically Signed: Jaimie Driscoll MD at 9:09 EST Tel , Service support ,
== END ==
PROVIDERS: Referring Provider Internal Medicine Medical Oncology; Visit Provider Internal Medicine Medical Oncology
DX: C62.12 Malignant neoplasm of descended left testis (principal)
CPT/HCPCS: 70553; A9575

== ENCOUNTER → 2021-07-31 06:57 | Outpatient (CLI) | payer BC, SELFPAY ==
--- NOTE | 2021-07-31 08:53 | NM_ITS ---
CLINICAL: 30-year-old male with reported history of testicular carcinoma. WHOLE BODY 99m Tc MDP RADIONUCLIDE BONE SCINTIGRAPHY COMPARISON: CT of the abdomen-pelvis report 06/20/2021, CT of the chest report 07/20/2021 FINDINGS: Following the intravenous administration of 24.8 mCi of 99m Tc MDP, whole body bone images reveal: 1. Increased radiopharmaceutical concentration is defined in the acromioclavicular compartments of both shoulders, bilateral elbows. 2. The remaining skeletal structures are scintigraphically unremarkable with normal-appearing renal images and urinary bladder activity identified. NM/Bone Scan Whole Body IMPRESSION: 1. 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 2. There is no definitive typical scintigraphic evidence of diffuse axial skeletal metastatic disease on the current examination. Electronically Signed: Devante Murguia DO at 23:03 EST Tel , Service support ,
--- NOTE | 2021-08-02 09:57 | PFT ---
INTRODUCTION: The patient is a 30-year-old male that presents for pulmonary function studies secondary to a diagnosis of prechemotherapy evaluation. Respiratory therapy reported good patient effort. Bronchodilators were used during testing. INTERPRETATION: Forced expiration spirometry demonstrates no evidence of a large airways obstructive ventilatory defect. There was a significant response to aerosolized bronchodilators noted. Spirograms are of suboptimal quality and terminate prior to 6 seconds, likely underestimating FVC. Body plethysmography was performed and revealed an elevated RV to 192% of predicted, indicative of underlying air trapping. Diffusing capacity by single breath CO was within normal limits. IMPRESSION: Stigmata of small airways disease with significant bronchodilator response and evidence of air trapping.
== END ==
PROVIDERS: Referring Provider Internal Medicine Medical Oncology; Visit Provider Internal Medicine Medical Oncology
DX: Z01.818 Encounter for other preprocedural examination (principal); C62.12 Malignant neoplasm of descended left testis
CPT/HCPCS: 78306; 94060; 94726; 94729; A9503

== ENCOUNTER 2021-08-08 09:29 | Day surgery (SDC) | payer BC, SELFPAY ==
[2021-08-08 09:57] VITALS: BP 121/74; PULSE 57; RESP 18; TEMP 36.6; O2SAT 100; BMI 20.9
[2021-08-08] MEDS: Lactated Ringers 1,000 ML 15 ML IV (10:06)
--- NOTE | 2021-08-08 10:23 | PCM.HP.BLA ---
History and Physical Date of Admission: 08/08/21 Date of Service: 07/31/21 MR#:[id number]: [facility][id number]:1990 Provider:Dr. Rocio De Souza MDAge/Sex: 30/M [facility]Signed Intake Vital Signs 07/31/21 08:21 Height 5 ft 10 in Weight: 147 lb 8 oz BMI 21.2 BP 133/83 H Blood Pressure Location Rt brachial Position Sitting Respiration 17 Pulse 67 Pulse Source Monitor Temp 98.1 F Temp Source Temporal Pulse Oximetry (%) 98 Oxygen Delivery Method room air Intake Visit Reasons: PORT PLACEMENT Chief Complaint: port placement [employer] Required: No Is patient in pain?: No Allergies No Known Allergies Allergy (Verified 07/25/21 15:34) Medications multivitamin 1 tab PO DAILY 07/16/21 [History Confirmed 07/25/21] oxycodone-acetaminophen 5 mg-325 mg tablet 2 tab PO Q6H PRN 30 Days #90 tab 07/25/21 [Rx Confirmed 07/25/21] ibuprofen 800 mg tablet 800 mg PO BID tab 07/31/21 [History Confirmed 07/31/21] PFSH Medical History Eustachian salpingitis High cholesterol Testicle cancer Surgical History History of umbilical hernia repair Hx of LASIK S/P radical unilateral orchiectomy Family History Grandfather Testicular cancer great grandfather Diabetes Father Diabetes Asthma Grandfather Alzheimer disease great grandfather Social History (Updated 07/31/21 @ 08:15 by Diane Friday) Smoking Status: Current some day smoker alcohol intake: current details: occasional wine (maybe once a month substance use type: does not use caffeine: Yes Type: carbonated beverages Number of servings: 2 HPI HPI HPI: ELOISE JO, is a 30 M who presents to the office today for port placement due to testicular cancer. Patient will be starting treatment on the and then every 3 weeks. Patient is currently on Percocet due to the pain. ROS General General: Yes weight change and fatigue; No appetite, colon cancer or breast cancer Additional Details: Pt has lost about 20lbs in 2 months HEENT HEENT: Yes eye surgery; No difficulty swallowing, eye injury, swollen glands or hoarseness Additional Details: Elsy Soto Endocrine: No thyroid disease, diabetes mellitus, thyroid cancer, Hair loss, heat intolerance or cold intolerance Skin Skin: No rash or changing moles Musc Musculoskeletal: Yes back problems; No arthritis, rheumatoid arthritis, gout or joint pain Cardio Cardiovascular: No murmur, pacemaker, heart disease, atrial fibrillation, high blood pressure, heart attack, heart stent, palpitations, shortness of breat with exertion or chest pain Psych Psychiatric: No depression, anxiety or hearing voices Resp Respiratory: No shortness of breath, No sleep apnea, No cough, No COPD, No asthma, No emphysema and No wheezing Gastro Gastrointestinal: Yes abdominal pain, No nausea or vomiting, No diarrhea, No constipation, No blood in stool, No acid reflux, No hemorrhoids, No ulcers, No gallbladder problem and No black,tarry stools Ruy Hematologic: No blood thinners, No blood disorders, No bleeding, No anemia and No blood clots Neuro Neurologic: No abnormal speech and No confusion Exam Const General: cooperative, healthy appearing, comfortable and no acute distress Neck Neck: normal visual inspection Chest Other: Normal inspection and palpation of upper chest Resp Effort & Inspection: normal respiratory effort Cardio Rate: regular rate GI Inspection: non-distended Palpation: soft Skin General: no rashes or lesions noted Neuro General: patient oriented x3 Psych Affect: normal affect COVID (Procedure Consent) Procedure Criteria Procedure Criteria: Yes Elective The surgeon/proceduralist and patient have discussed in detail the risk of exposure to and/or potential harm posed by the COVID-19 virus with having a surgery/procedure at this time versus the risk of delaying the surgery/procedure. It is not possible to know either the risk of delaying the surgery or procedure or chance of getting an infection with perfect accuracy, but a joint decision was made between the patient and the surgeon/proceduralist to proceed at this time with the scheduled surgery/procedure as indicated on the consent form. Assessment and Plan Assessment and Plan (1) Encounter for insertion of venous access port: Status: Acute (2) Testicular cancer: Status: Acute Qualifiers: Descendance of testis: descended Laterality: left Qualified Code(s): C62.12 - Malignant neoplasm of descended left testis Comment: Left Testicular Cancer, mixed seminoma S/P Left Radical orchiectomy. 06/14/2021 LDH 270, AFP 977, HCG . CT on 06/20/[address] c/a/p on 07/20/2021 showed multiple lung nodules, retroperitoneal adenopathy 10cm. Staging pT2 cN3 M1a S1. Discussed testicular cancer stage IIIA disease, treatment with chemotherapy. Pt agrees to proceed. Prognosis which is good depending on response to chemotherapy. Plan - Dr. Rocio De Souza MD: I have discussed above with the patient- Port-a-Cath placement. Right IJ Patient has been counseled as to the risks/benefits of the procedure. I have explained the risks of the surgery, including but not limited to: infection, bleeding, injury to any blood vessels/nerves, injury to lungs (such as pneumothorax or hemothorax and need for chest tube), not having any access, nonfunctioning of port due to thrombosis, infection of port, etc. the patient understands and agrees to proceed. I have answered all the patient's questions to the patient?s satisfaction and the patient has no further questions. Rocio De Souza M.D. Pager: [phone] [facility] [address] [place] [address], [address] [place] [address] Office: [phone] Plan Details Follow Up: We will schedule port placement Coding Level of Care Code Off vis,new,level 3 Diagnoses Encounter for insertion of venous access port Z45.2 Testicular cancer C62.12 Descendance of testis: descended Laterality: left 07/31/21 0913<Electronically signed by Rocio De Souza MD>Date Rocio De Souza MD
[2021-08-08] MEDS: Lidocaine 1% /Epi 1:100 (20ml) 20 ML Vial (11:17)
[2021-08-08] MEDS: Bupivacaine Mpf 0.5% 30 ML VIAL (11:17)
--- NOTE | 2021-08-08 11:20 | PCM.OPRPT ---
Report of Operation Date of Procedure: 08/08/21 Pre-Operative Diagnosis: z45.2, Testicular cancer Post-Operative Diagnosis: Same Surgery/Procedure Performed:: 1. Placement of right IJ Port-A-Cath 2. Use of fluoroscopy 3. Use of ultrasound Surgeon: Rocio De Souza Type of Anesthesia: Local MAC Anesthesiologist: Judah Jacques Special Medications: Ancef 2 g IV x1 Specimen's removed: None Estimated Blood Loss (mL): < 10 cc Description of Procedure: After informed consent was given, the patient was brought to the operating room and placed in the supine position. Appropriate time out protocol was followed. Patient was then given IV conscious sedation for anesthesia. The patient's right upper chest and neck were then prepped with a surgical skin preparation and sterile surgical drapes were placed. After proper landmarks were ascertained, the skin at the upper right chest area was then infiltrated with 1:1 mixture of 1% lidocaine with epinephrine and 0.5% marcaine. A needle trocar was then inserted into the right internal jugular vein with ultrasound guidance-multiple vessels were viewed with u/s and the right IJ was chosen-- and there was good aspiration of venous blood. A wire was then threaded into the needle trocar and this was visualized under fluoroscopy to ensure that the wire was in the superior vena cava. Once this was done, then the needle trocar was removed. A small skin layla was made with an 11 blade knife at the wire entrance site. The dilator with the introducer sheath attached was then placed over the wire into the right internal jugular vein via the Seldinger technique and this was visualized under fluoroscopy. The dilator and sheath were in proper position as visualized by fluoroscopy. A subcutaneous pocket was then created caudad to the catheter insertion site. A transverse skin incision was made after the skin and subcutaneous tissues were infiltrated with local anesthetic. Blunt dissection was then used to create a space large enough for placement of the subcutaneous port. The catheter was then tunneled into the subcutaneous pocket. The wire and dilator were then removed. The catheter was then threaded into the introducer sheath and was positioned with its tip at the junction of the superior vena cava and the right atrium as visualized under fluoroscopy. The excess catheter was transected. The catheter was then attached to the subcutaneous port using manufacturers guidelines. The catheter was flushed with a heparin saline mixture prior to placement. Hemostasis was carefully controlled with electrocautery. The port was sutured to the subcutaneous fascia using 2-0 Vicryl suture at two sites. The port was then placed in the subcutaneous pocket. The incision were reapproximated with interrupted subdermal 3-0 vicryl sutures. The skin was reapproximated with 3-0 nylon suture in a interrupted fashion. Steristrips were used for reinforcement of the skin closure at IJ insertion site and a sterile opsite dressings were applied. The patient tolerated the procedure well. Grafts/Implants Used: Bard PowerPort isp M.R.I. 6Fr Lot lot [id number] Complications none
--- NOTE | 2021-08-08 11:22 | EX.PCM.DISCH ---
Discharge Instructions Procedure Port-A-Cath Diet Discharge Diet: Light diet - advance as tolerated Activity May shower in (days): 5 (Keep port site clean and dry x5 days. Neck incision okay to get wet after 1 day. Okay to lower shower and upper sponge bath. OR okay to taper off port site with a Ziploc bag to shower) Lifting Restrictions: No lifting > 15 pounds for 3 days with the arm on the side of the port Dressing / Incision Call your doctor if your incision/area has: Continuous Slow Oozing, Sudden Increased Bleeding, Increased Pain/ Swelling, Increased Redness, Foul Smelling Discharge and Swelling at the incision site Call your doctor if you observe: Fever of 101 or Higher Change Dressing in: 2 days Follow Up Care Please Follow Up With: Rocio De Souza MD When: In 10 days for permanent suture removal?call office for appointment Test Results: Test results from this visit will be discussed in further detail at your follow-up appointment, if applicable. Discharge Plan Admission Attending Provider: Rocio De Souza Primary Care Provider: Care PhysicianLizzie Primary Discharge Orders/Prescriptions Prescriptions: New oxycodone-acetaminophen [Endocet] 5-325 mg tablet 1 tab PO Q6H PRN (Reason: pain) 2 Days Qty: 5 RF: 0 Continued multivitamin Tablet 1 tab PO DAILY RF: 0 oxycodone-acetaminophen 5-325 mg tablet 2 tab PO Q6H PRN (Reason: pain) 30 Days Qty: 90 RF: 0 lidocaine-prilocaine 2.5-2.5 % cream 1 applic topical ONCE PRN (Reason: Port access) 30 Days Qty: 30 RF: 2 ondansetron 8 mg tablet,disintegrating 8 mg PO Q8H PRN (Reason: nausea and vomiting) Qty: 30 RF: 2 prochlorperazine maleate 10 mg tablet 10 mg PO Q6H PRN (Reason: nausea and vomiting) Qty: 30 RF: 2 ibuprofen 800 mg tablet 800 mg PO BID RF: 0 Referrals / Follow Up: Care PhysicianLizzie Primary [Primary Care Provider] - Disposition Disposition (needs filled in before D/C Order can be placed): Home, Self Care
[2021-08-08 11:25] VITALS: BP 107/68; BP 121/74; PULSE 66; RESP 16; TEMP 36.6; O2SAT 100
[2021-08-08 11:30] VITALS: BP 111/61; BP 121/74; PULSE 60; RESP 16; O2SAT 97
[2021-08-08 11:35] VITALS: BP 107/60; BP 121/74; PULSE 56; RESP 16; O2SAT 97
--- NOTE | 2021-08-08 11:40 | RAD_ITS ---
STUDY: X-RAY CHEST REASON FOR EXAM: Male, 30 years old. Port -- pacu TECHNIQUE: Single AP portable view of the chest. COMPARISON: None. FINDINGS: A right-sided portacatheter is in place. The tip is at the junction of the superior vena cava and right atrium. There is a 1.2 cm nodule in the right upper lobe. The smaller nodules also seen in the left lobe. There is no demonstrated pleural abnormality. Normal size heart. Normal mediastinum and christina. Normal visualized pulmonary arteries. Normal visualized aortic arch and descending thoracic aorta. Normal visualized thoracic spine. Normal visualized ribs, clavicles, and shoulders. There is no demonstrated abnormality of the visualized soft tissue structures of the upper abdomen. RAD/CXR for Line Placement IMPRESSION: The tip of the right sided vianney catheter is at the junction of the superior vena cava and right atrium. Pulmonary nodules. Electronically Signed: Zhang Ardon MD at 12:11 EST , Service support ,
[2021-08-08 11:42] VITALS: BP 111/64; BP 121/74; PULSE 58; RESP 16; O2SAT 98
[2021-08-08 12:22] VITALS: BP 121/74
== END 2021-08-08 23:59 | disposition home or self-care (01) ==
LOC: SDC 09:34 → AC 09:34
PROVIDERS: Referring Provider Surgery; Visit Provider Surgery
PROC: (CPT 36561; principal; 2021-08-08 10:45)
DX: Z45.2 Encounter for adjustment and management of vascular access device (principal); C62.90 Malignant neoplasm of unspecified testis, unspecified whether descended or undescended; F17.200 Nicotine dependence, unspecified, uncomplicated; J45.909 Unspecified asthma, uncomplicated
CPT/HCPCS: 36561; 00532; 71045; 77001; J7120

== ENCOUNTER 2021-09-03 07:02 | Outpatient (CLI) | payer BC, SELFPAY ==
--- NOTE | 2021-09-03 07:07 | RAD_ITS ---
STUDY: X-RAY CHEST REASON FOR EXAM: Male, 30 years old. HIGH RISK MEDS TECHNIQUE: PA and lateral views of the chest. COMPARISON: Comparison is made with prior study dated 08/08/2021. FINDINGS: The right-sided Port-A-Cath is seen with the tip at the junction of superior vena cava and right atrium. The previously seen 1.2 cm nodule in the right upper lobe has resolved. No new abnormalities. There is no demonstrated pleural abnormality. Normal size heart. Normal mediastinum and christina. Normal visualized pulmonary arteries. Normal visualized aortic arch and descending thoracic aorta. Normal visualized thoracic spine. Normal visualized ribs, clavicles, and shoulders. There is no demonstrated abnormality of the visualized soft tissue structures of the upper abdomen. RAD/Chest PA and Lateral IMPRESSION: No acute abnormality is seen. Electronically Signed: Zhang Ardon MD at 8:13 EST ,
== END 2021-09-03 23:59 | disposition short-term general hospital (02) ==
PROVIDERS: Referring Provider Internal Medicine Medical Oncology; Visit Provider Internal Medicine Medical Oncology
DX: C62.90 Malignant neoplasm of unspecified testis, unspecified whether descended or undescended (principal); Z79.899 Other long term (current) drug therapy
CPT/HCPCS: 71046

== ENCOUNTER 2021-09-17 16:12 | Inpatient (IN) | payer BC, SELFPAY ==
[2021-09-17] VITALS (7 sets, daily range): BP systolic 95–107; BP diastolic 56–66; PULSE 87–120; RESP 13–20; TEMP 36.8–39.7; O2SAT 95–100; BMI 20.8; BMI 21.9
--- NOTE | 2021-09-17 16:24 | EKG12_ITS ---
Test Reason : DIZZINESS Blood Pressure : / mmHG Vent. Rate : 100 BPM Atrial Rate : 100 BPM P-R Int : 128 ms QRS Dur : 084 ms QT Int : 306 ms P-R-T Axes : 079 082 051 degrees QTc Int : 394 ms Normal sinus rhythm Normal ECG Confirmed by ISHAN LOPEZ, KIMBERLY ([id number]), department editor ADELITA ROSADO ([id number]) on 09/19/2021 11:43:12 AM Referred By: CHERYL Confirmed By:KIMBERLY OLMSTEAD MD
--- NOTE | 2021-09-17 16:34 | EDS_ITS ---
HPI History of Present Illness Chief Complaint: Fever Informant: patient Onset/Context/Timing Onset: Today Narrative Narrative: Patient present secondary to fever and chills. Patient is currently undergoing chemotherapy for testicular cancer. He got chemotherapy this morning and finished around 11 AM. Patient states he went home and took a nap and woke up 1 PM with chills and body aches. He has nausea and did vomit once today. No diarrhea. Mild cough. Does complain of headache and feeling as if he is dehydrated. Patient is not vaccinated against Covid. He did have Covid in June. [facility] Medical History Alcohol use Asthma Back pain Cancer Chipped tooth CINV (chemotherapy-induced nausea and vomiting) Easy bruising Encounter for education Eustachian salpingitis Former smoker High cholesterol History of pain when walking Hx of perforation of tympanic membrane Injury of head and neck Lung nodules Testicle cancer Home Medications multivitamin 1 tab PO DAILY 07/16/21 [History Last Taken Unknown] ibuprofen 800 mg tablet 800 mg PO BID tab 07/31/21 [History Last Taken Unknown] lidocaine-prilocaine 2.5 %-2.5 % topical cream 1 applic TOPICAL ONCE PRN 30 Days #30 g 08/06/21 [Rx Last Taken Unknown] prochlorperazine maleate 10 mg tablet 10 mg PO Q6H PRN #30 tab 08/06/21 [Rx Last Taken Unknown] oxycodone-acetaminophen [Endocet] 1 tab PO Q6H PRN 2 Days #5 tab 08/08/21 [Rx Last Taken Unknown] valacyclovir 1 gram tablet 1,000 mg PO TID #21 tab 08/27/21 [Rx Last Taken Unknown] ondansetron 8 mg disintegrating tablet 8 mg PO Q8H PRN #30 tab 09/04/21 [Rx Last Taken Unknown] olanzapine 5 mg disintegrating tablet 5 mg PO DAILY #3 tab 09/05/21 [Rx Last Taken Unknown] Allergy/AdvReac Type Severity Reaction Status Date / Time No Known Allergies Allergy Verified 08/27/21 08:30 Family History Grandfather Testicular cancer great grandfather Diabetes Father Diabetes Asthma Grandfather Alzheimer disease great grandfather Surgical History History of orchiectomy History of umbilical hernia repair Hx of LASIK Hx of myringotomy S/P radical unilateral orchiectomy Social History Smoking Status: Former smoker alcohol intake: current details: occasional wine (maybe once a month substance use type: does not use caffeine: Yes Type: carbonated beverages Number of servings: 2 ROS ROS ED Constitutional Constitutional ED: Reports chills and fever(s) Eyes Eyes: Denies blurry vision ENT ENT ED: Denies rhinorrhea or sore throat Cardiovascular Cardiovascular: Denies chest pain Respiratory/Chest Respiratory/Chest: Reports cough; Denies dyspnea or sputum Gastrointestinal Gastrointestinal: Reports nausea and vomiting; Denies abdominal pain or diarrhea Genitourinary Genitourinary ED: Denies dysuria Musculoskeletal Musculoskeletal: Reports myalgias Integumentary Denies rash Neurologic Neurologic: Reports headache(s) Psychiatric Psychiatric: Denies anxiety or depression Endocrine Endocrinology: Denies polydipsia or polyuria Allergic/Immunologic Allergic/Immunologic ED: Denies urticaria EXAM Physical Exam Const Vital Signs: 09/17/21 16:13 09/17/21 16:16 09/17/21 16:28 Temperature 103.4 F H 103.4 F H Temperature Source Temporal Temporal Pulse Rate 120 H 120 H Respiratory Rate 20 H 20 H Respiratory Effort Normal Respiratory Pattern Normal Blood Pressure 106/64 106/64 Blood Pressure Mean 78 78 Pulse Ox 99 99 Oxygen Delivery Method Room Air Room Air 09/17/21 18:28 09/17/21 19:36 Temperature 100.3 F H 98.8 F Temperature Source Temporal Temporal Pulse Rate 102 H 99 Respiratory Rate 16 13 Respiratory Effort Respiratory Pattern Blood Pressure 101/63 107/66 Blood Pressure Mean 75 79 Pulse Ox 95 99 Oxygen Delivery Method Room Air Room Air Positive well nourished and well developed General Appearance ED: well developed HEENT Reports moist mucous membranes Eyes PERRL and EOMs intact bilaterally Neck supple Chest Wall palpation of chest normal Chest Narrative: Right upper chest port noted. No overlying erythema. Resp normal respiratory effort and clear to auscultation bilaterally Cardio Rate: tachycardic GI non-tender and non-distended Palpation: soft Extremity normal to inspection Neuro oriented x3 Sensorium / Orientation: alert Psych mental status grossly normal Skin no rashes or lesions noted MDM MDM MDM Narrative Medical decision making narrative: Patient with labs and cultures ordered. Covid and influenza swab ordered. EKG, chest x-ray, urinalysis obtained. Patient given Tylenol for fever and IV fluids ordered. Lab Data Attestation: I reviewed the patient's lab results. Labs: Laboratory Results - last 24 hr 09/17/21 09/17/21 09/17/21 17:15 17:15 17:15 WBC 22.3 H RBC 3.87 L Hgb 11.8 L Hct 33.5 L MCV 86.6 MCH 30.5 MCHC 35.2 RDW Std Deviation 43.9 RDW Coeff of Phil 14.8 H Plt Count 155 MPV 8.9 Immature Gran % (Auto) MARINE OPERATIONS COORDINATOR Neut % (Auto) MARINE OPERATIONS COORDINATOR Lymph % (Auto) MARINE OPERATIONS COORDINATOR Rhea % (Auto) MARINE OPERATIONS COORDINATOR Eos % (Auto) MARINE OPERATIONS COORDINATOR Baso % (Auto) MARINE OPERATIONS COORDINATOR Absolute Neuts (auto) 16.1 H Absolute Lymphs (auto) 3.57 Total Counted 100 Neutrophils % (Manual) 67 Band Neutrophils % 5 Lymphocytes % (Manual) 16 L Monocytes % (Manual) 4 Basophils % (Manual) 2 H Metamyelocytes % 5 H Blast Cells % 1 H* Nucleated RBC % MARINE OPERATIONS COORDINATOR Nucleated RBCs/100 WBC 1 Diff Path Review May foll Platelet Estimate ADEQUATE RBC Morphology NORM C+C Sodium 136 Potassium 3.2 L Chloride 102 Carbon Dioxide 28.0 Anion Gap 6 BUN 19 H Creatinine 1.20 Estim Creat Clear Calc 83.90 Est GFR (MDRD) Af Amer 91 Est GFR (MDRD) Non-Af 75 BUN/Creatinine Ratio 15.8 Glucose 103 Lactic Acid 2.2 H* Calcium 8.7 Total Bilirubin 0.30 AST 48 H ALT 22 Alkaline Phosphatase 188 H Total Protein 6.4 Albumin 3.3 Globulin 3.1 Albumin/Globulin Ratio 1.1 Urine Color Urine Clarity Urine pH Ur Specific [place] Urine Protein Urine Glucose (UA) Urine Ketones Urine Occult Blood Urine Nitrite Urine Bilirubin Urine Urobilinogen Ur Leukocyte Esterase Urine RBC Urine WBC Ur Squamous Epith Cells Urine Bacteria Urine Mucus 09/17/21 19:21 WBC RBC Hgb Hct MCV MCH MCHC RDW Std Deviation RDW Coeff of Phil Plt Count MPV Immature Gran % (Auto) Neut % (Auto) Lymph % (Auto) Rhea % (Auto) Eos % (Auto) Baso % (Auto) Absolute Neuts (auto) Absolute Lymphs (auto) Total Counted Neutrophils % (Manual) Band Neutrophils % Lymphocytes % (Manual) Monocytes % (Manual) Basophils % (Manual) Metamyelocytes % Blast Cells % Nucleated RBC % Nucleated RBCs/100 WBC Diff Path Review Platelet Estimate RBC Morphology Sodium Potassium Chloride Carbon Dioxide Anion Gap BUN Creatinine Estim Creat Clear Calc Est GFR (MDRD) Af Amer Est GFR (MDRD) Non-Af BUN/Creatinine Ratio Glucose Lactic Acid Calcium Total Bilirubin AST ALT Alkaline Phosphatase Total Protein Albumin Globulin Albumin/Globulin Ratio Urine Color Yellow Urine Clarity Clear Urine pH 8.0 Ur Specific [place] 1.015 Urine Protein Negative Urine Glucose (UA) Normal Urine Ketones Negative Urine Occult Blood Negative Urine Nitrite Negative Urine Bilirubin Negative Urine Urobilinogen Normal Ur Leukocyte Esterase Negative Urine RBC 0 SEEN Urine WBC 0 SEEN Ur Squamous Epith Cells 0 SEEN Urine Bacteria 0 SEEN Urine Mucus 0 SEEN Radiography Chest X-Ray - ED: 1 View, Read by ED Physician, Normal, Heart, Lungs, Mediastinum and - (Right upper chest port line in good position) Diagnostic Testing: Clinical Impression(s) from Imaging Studies Chest X-Ray 09/17/21 17:33 IMPRESSION: There are no acute findings. Electronically Signed: Zeb Ernst MD at 18:03 EST Reading Location ID and State: [facility] / [place] , Service support , EKG Initial EKG: Attestation: I personally reviewed and interpreted this EKG as follows: Interpretation: Sinus Rhythm (Sinus at 100 with no acute ischemia.) Treatment and Re-Evaluation Comments:: On repeat evaluation patient feeling improved. Heart rate is now 99 with temperature of 98.8. Lab work at this time reveals white count of 22.3 with 67% mid neutrophils, 5 bands. Chemistry studies significant for potassium of 3.2. Lactic acid 2.2. Urinalysis negative. Covid and influenza test negative. Patient does have blood and urine cultures pending. He has been given Zosyn and vancomycin pending culture results. I will speak with hospitalist regarding admission. Discharge Plan Triage Chief Complaint: Fever ED Provider: Norma Gonzalez Dx/Rx/DC Orders Clinical Impression: SIRS (systemic inflammatory response syndrome) Prescriptions: No Action multivitamin Tablet 1 tab PO DAILY RF: 0 lidocaine-prilocaine 2.5-2.5 % cream 1 applic topical ONCE PRN (Reason: Port access) 30 Days Qty: 30 RF: 2 prochlorperazine maleate 10 mg tablet 10 mg PO Q6H PRN (Reason: nausea and vomiting) Qty: 30 RF: 2 ibuprofen 800 mg tablet 800 mg PO BID RF: 0 valacyclovir 1 gram tablet 1,000 mg PO TID Qty: 21 RF: 0 olanzapine [Zyprexa Zydis] 5 mg tablet,disintegrating 5 mg PO DAILY Qty: 3 RF: 2 oxycodone-acetaminophen [Endocet] 5-325 mg tablet 1 tab PO Q6H PRN (Reason: pain) 2 Days Qty: 5 RF: 0 ondansetron 8 mg tablet,disintegrating 8 mg PO Q8H PRN (Reason: nausea and vomiting) Qty: 30 RF: 2 Primary Care Provider: Care Physician,No Primary Referrals: Care Physician,No Primary [Primary Care Provider] - Disposition Disposition: Acute Care Hospital [facility]
[2021-09-17 17:27] LABS: Hematocrit 33.5 % (40-54); Hemoglobin 11.8 g/dL (13.0-16.5); Mean Corp Hgb Conc 35.2 g/dL (32-36); Mean Corpuscular Hgb 30.5 pg (27.0-32.0); Mean Corpuscular Volume 86.6 fL (80-94); Mean Platelet Vol. 8.9 fl (6.2-12.0); POSITIVE COUNT YES; POSITIVE DIFFERENTIAL YES; POSITIVE MORPHOLOGY YES; Platelet Count 155 K/mm3 (150-450); RBC Distribution Width CV 14.8 % (11.6-14.6); RBC Distribution Width SD 43.9 fl (35.1-43.9); Red Blood Count 3.87 M/mm3 (4.6-6.2); White Blood Count 22.3 K/mm3 (4.4-11.0)
[2021-09-17] MEDS: 0.9% Normal Saline 1,000 ML 999 ML IV (17:32)
[2021-09-17] MEDS: Ondansetron 4 MG/2 ML Vial IV (17:32)
[2021-09-17] MEDS: Acetaminophen 500 MG Tablet 1000 MG PO (17:32)
--- NOTE | 2021-09-17 17:33 | RAD_ITS ---
STUDY: X-RAY CHEST REASON FOR EXAM: Male, 30 years old. CHEST PAIN fever TECHNIQUE: XR Chest 1 View COMPARISON: 09.03.21 FINDINGS: There is no demonstrated pleural abnormality. There is a right Port-A-Cath and/or mediport in place. The tip is in the superior vena cava. There is no pneumothorax. Normal size heart. Normal mediastinum and christina. Normal visualized pulmonary arteries. Normal visualized aortic arch and descending thoracic aorta. Normal visualized thoracic spine. Normal visualized ribs, clavicles, and shoulders. There is no demonstrated abnormality of the visualized soft tissue structures of the upper abdomen. RAD/Chest 1 View (Portable) IMPRESSION: There are no acute findings. Electronically Signed: Zeb Ernst MD at 18:03 EST ,
[2021-09-17 17:47] LABS: ALB/GLOB Ratio 1.1 RATIO (0.9-2.4); AST(SGOT) 48 U/L (15-37); Alanine Aminotransfer ALT/SGPT 22 U/L (16-61); Albumin, Serum 3.3 g/dL (3.2-5.0); Alkaline Phosphatase 188 U/L (45-117); Anion Gap 6 (5-15); BUN 19 mg/dL (7-18); BUN/Creat Ratio 15.8 RATIO (10-20); Calcium,Total 8.7 mg/dL (8.5-10.1); Chloride 102 mmol/L (98-107); EST Glomerular Filtration Rate 75 mL/min (>60); Est Glom Filt Rate - Afr Amer 91 mL/min (>60); Globulin 3.1 g/dL (2.2-4.2); Glucose 103 mg/dL (74-106); Potassium 3.2 mmol/L (3.5-5.1); Protein, Total 6.4 g/dL (6.4-8.2); Sodium Level 136 mmol/L (136-145)
[2021-09-17 18:26] LABS: Lactic Acid 2.2 mmol/L (0.4-1.9)
[2021-09-17 18:30] LABS: Basophil 2 % (0-1); Blast 1 % (0-0); Lymphocyte 16 % (19-41); Metamyelocyte 5 % (0-1); Monocyte 4 % (0-10); Neutrophil-Band 5 % (0-5); Neutrophil-Segmented 67 % (47-70); Total Cells Counted 100 (MANUAL DIFF)
[2021-09-17 18:31] LABS: Nucleated Red Bld Cells,Manual 1 % (0-5); Platelet Estimate ADEQUATE (ADEQ); Red Cell Morphology NORM C+C NORMAL (NORM C&C)
[2021-09-17 18:32] LABS: Differential Indicated MANUAL DIFF
[2021-09-17 18:33] LABS: Absolute Lymphocyte Count 3.57 X10^3/uL (0.83-4.51); Absolute Neutrophil Count 16.1 X10^3/uL (2.0-7.7); Scan Smear per Review Criteria MANUAL DIFF
[2021-09-17] MEDS: 0.9% Normal Saline 1,000 ML 125 ML IV (19:13)
[2021-09-17 19:26] LABS: Bacteria 0 SEEN /hpf (None Seen); Mucous, Urine 0 SEEN /hpf (<or=2+); Red Blood Cells-Urine 0 SEEN /hpf (0-5); Squamous Epithelial Cells - UA 0 SEEN /hpf (0-5); White Blood Cells 0 SEEN /hpf (0-5)
[2021-09-17 19:27] LABS: Color, Urine Yellow (Yellow); Glucose, Dipstick Normal (Normal); Ketone-Dipstick Negative (Negative); Leukocyte Esterase-Dipstick Negative /ul (Negative); Nitrite-Dipstick Negative (Negative); Occult Blood-Urine Negative /ul (Negative); Protein-Dipstick Negative (Negative); Specific Gravity, Urine 1.015 (1.002-1.030); Urine Bilirubin Dipstick Negative (Negative); Urine Clarity Clear (Clear); Urine Urobilinogen Normal (Normal)
--- NOTE | 2021-09-17 20:14 | PCM.HP.STD ---
HPI - General General Date of Admission: 09/17/21 Date of Service: 09/17/21 Chief Complaint: Fever - 1 day HPI Narrative ELOISE JO, is a 30 M who presents with fever noticed on the day of admission. Patient has history of left metastatic testicular CA, status post left radical orchidectomy who comes in with a fever after his chemotherapy session today. Patient states that he woke up this afternoon after receiving his chemotherapy with a fever. He had associated nausea and vomited a lot. He has been having and chills on and off. He denied any dizziness or palpitations or feeling of passing out. In the ED, his T-max was 103.4F, heart rate 120, blood pressure 95/56, SPO2 is 99% on room air. Admitting WBC count is 22.3, down from 30.9 in the morning. Patient had received Neupogen about a week ago. Hemoglobin was 11.8, platelet count 155, blood cells 1%. Sodium is 136, potassium 3.2, chloride 102, bicarbonate 28, BUN 19, creatinine 1.2, baseline creatinine is 1.0-1.1. Lactic acid is 2.2 [facility] Medical History Alcohol use Asthma Back pain Cancer Chipped tooth CINV (chemotherapy-induced nausea and vomiting) Easy bruising Encounter for education Eustachian salpingitis Former smoker High cholesterol History of pain when walking Hx of perforation of tympanic membrane Injury of head and neck Lung nodules Testicle cancer Home Medications multivitamin 1 tab PO DAILY 07/16/21 [History Last Taken Unknown] ibuprofen 800 mg tablet 800 mg PO BID tab 07/31/21 [History Last Taken Unknown] lidocaine-prilocaine 2.5 %-2.5 % topical cream 1 applic TOPICAL ONCE PRN 30 Days #30 g 08/06/21 [Rx Last Taken Unknown] prochlorperazine maleate 10 mg tablet 10 mg PO Q6H PRN #30 tab 08/06/21 [Rx Last Taken Unknown] oxycodone-acetaminophen [Endocet] 1 tab PO Q6H PRN 2 Days #5 tab 08/08/21 [Rx Last Taken Unknown] valacyclovir 1 gram tablet 1,000 mg PO TID #21 tab 08/27/21 [Rx Last Taken Unknown] ondansetron 8 mg disintegrating tablet 8 mg PO Q8H PRN #30 tab 09/04/21 [Rx Last Taken Unknown] olanzapine 5 mg disintegrating tablet 5 mg PO DAILY #3 tab 09/05/21 [Rx Last Taken Unknown] Allergy/AdvReac Type Severity Reaction Status Date / Time No Known Allergies Allergy Verified 08/27/21 08:30 Family History Grandfather Testicular cancer great grandfather Diabetes Father Diabetes Asthma Grandfather Alzheimer disease great grandfather Surgical History History of orchiectomy History of umbilical hernia repair Hx of LASIK Hx of myringotomy S/P radical unilateral orchiectomy Social History Smoking Status: Former smoker alcohol intake: current details: occasional wine (maybe once a month substance use type: does not use caffeine: Yes Type: carbonated beverages Number of servings: 2 ROS ROS Narrative Constitutional: Reports: Malaise, Weakness, Fatigue, Chills, fever, anorexia. Denies: Night Sweats, Weight Change Eyes: Denies: Blurred vision, Cataracts, Conjunctivae Inflammation, Pain, Redness, Vision Change HEENT: Denies: Difficulty Hearing, Difficulty Swallowing, Head Aches, Hearing Changes, Sinus Congestion, Sinus Drainage Cardiovascular: Denies: Chest Pain, Orthopnea, Palpitations Respiratory: Denies: Cough, Shortness of breath at rest, Sputum production Gastrointestinal: Denies: Abdominal Pain, Nausea, Vomiting Genitourinary: Denies: Dysuria Musculoskeletal: Denies: Joint Pain, Joint stiffness, Joint swelling, Joint Tenderness Skin: Denies: Rash, Wounds Neurological: Denies: Numbness, Tingling, Focal weakness Vital Signs Vital Signs Vital Signs: 09/17/21 16:13 09/17/21 16:16 09/17/21 16:28 Temperature 103.4 F H 103.4 F H Temperature Source Temporal Temporal Pulse Rate 120 H 120 H Respiratory Rate 20 H 20 H Respiratory Effort Normal Respiratory Pattern Normal Blood Pressure 106/64 106/64 Blood Pressure Mean 78 78 Pulse Ox 99 99 Oxygen Delivery Method Room Air Room Air 09/17/21 18:28 02/14/22 19:36 Temperature 100.3 F H 98.8 F Temperature Source Temporal Temporal Pulse Rate 102 H 99 Respiratory Rate 16 13 Respiratory Effort Respiratory Pattern Blood Pressure 101/63 107/66 Blood Pressure Mean 75 79 Pulse Ox 95 99 Oxygen Delivery Method Room Air Room Air Weight Weight: 65.9 kg Body Mass Index (BMI) 20.8 Physical Exam Narrative Physical exam: General: Alert, Oriented x3, Cooperative, No apparent distress, Well developed HEENT: Atraumatic Oral: Moist Mucosa Neck: Supple Lungs: Clear to auscultation Cardiovascular: HS I+II, regular, no murmurs Abdomen: Bowel Sounds Present, Soft, Non Tender Extremities: No edema Results Lab / Micro Data Result Diagrams: 09/17/21 17:15 09/17/21 17:15 Labs: Laboratory Results - last 24 hr 09/17/21 17:15: WBC 22.3 H, RBC 3.87 L, Hgb 11.8 L, Hct 33.5 L, MCV 86.6, MCH 30.5, MCHC 35.2, RDW Std Deviation 43.9, RDW Coeff of Phil 14.8 H, Plt Count 155, MPV 8.9, Immature Gran % (Auto) SERVER CASHIER, Neut % (Auto) SERVER CASHIER, Lymph % (Auto) SERVER CASHIER, [place] % (Auto) SERVER CASHIER, Eos % (Auto) SERVER CASHIER, Baso % (Auto) SERVER CASHIER, Absolute Neuts (auto) 16.1 H, Absolute Lymphs (auto) 3.57, Total Counted 100, Neutrophils % (Manual) 67, Band Neutrophils % 5, Lymphocytes % (Manual) 16 L, Monocytes % (Manual) 4, Basophils % (Manual) 2 H, Metamyelocytes % 5 H, Blast Cells % 1 H*, Nucleated RBC % SERVER CASHIER, Nucleated RBCs/100 WBC 1, Diff Path Review December, Platelet Estimate ADEQUATE, RBC Morphology NORM C+C 09/17/21 17:15: Sodium 136, Potassium 3.2 L, Chloride 102, Carbon Dioxide 28.0, Anion Gap 6, BUN 19 H, Creatinine 1.20, Estim Creat Clear Calc 83.90, Est GFR (MDRD) Af Amer 91, Est GFR (MDRD) Non-Af 75, BUN/Creatinine Ratio 15.8, Glucose 103, Calcium 8.7, Total Bilirubin 0.30, AST 48 H, ALT 22, Alkaline Phosphatase 188 H, Total Protein 6.4, Albumin 3.3, Globulin 3.1, Albumin/Globulin Ratio 1.1 09/17/21 17:15: Lactic Acid 2.2 H* 09/17/21 19:21: Urine Color Yellow, Urine Clarity Clear, Urine pH 8.0, Ur Specific [place] 1.015, Urine Protein Negative, Urine Glucose (UA) Normal, Urine Ketones Negative, Urine Occult Blood Negative, Urine Nitrite Negative, Urine Bilirubin Negative, Urine Urobilinogen Normal, Ur Leukocyte Esterase Negative, Urine RBC 0 SEEN, Urine WBC 0 SEEN, Ur Squamous Epith Cells 0 SEEN, Urine Bacteria 0 SEEN, Urine Mucus 0 SEEN Micro: Microbiology 09/17/21 18:20 Nasal Secretion SARS-CoV-2 Antigen (Rapid) - Final 09/17/21 18:38 Mucosa - Nasopharyngeal Influenza Types A,B Direct FA (JOSE MIGUEL) - Final Radiology Impression Chest X-Ray 09/17/21 17:33 IMPRESSION: There are no acute findings. Electronically Signed: Zeb Ernst MD at 18:03 EST Reading Location ID and State: [facility] / [place] , Service support , Assessment & Plan Assessment/Plan (1) Neutropenic fever: (2) Hypokalemia: (3) Testicular cancer: QUALIFIERS: Descendance of testis: descended Laterality: left Qualified Code(s): C62.12 - Malignant neoplasm of descended left testis PLAN: 1. Acute neutropenic fever in a patient with history of testicular CA, on chemotherapy Received chemotherapy this morning qSOFA score of 1 Blood and urine cultures taken from the ED; follow-up on results Started on IV vancomycin and Zosyn; will continue same Continue on IV fluids, repeat blood work in a.m. Oncology consult 2. Hypokalemia likely related to episode of vomiting, replaced Check magnesium, repeat blood work in a.m. 3. Stage III testicular CA, on chemotherapy, follows with oncology in the outpatient 4. DVT PPx -Lovenox SC Charges/Coding Visit Charges Inpatient E&M: 94566 Init Hosp L3
[2021-09-17 21:23] LABS: Reflex Lactate? Y
--- NOTE | 2021-09-17 21:29 | PCM.RX.CS ---
Consult Pharmacy has been consulted to manage selected antiobiotic: Vancomycin Type of Consult: New start Labs: Sodium 136 mmol/L (136-145) 09/17/21 17:15 Potassium 3.2 mmol/L (3.5-5.1) L 09/17/21 17:15 Chloride 102 mmol/L (98-107) 09/17/21 17:15 Carbon Dioxide 28.0 mmol/L (21.0-32.0) 09/17/21 17:15 Anion Gap 6 (5-15) 09/17/21 17:15 BUN 19 mg/dL (7-18) H 09/17/21 17:15 Creatinine 1.20 mg/dL (0.70-1.30) 09/17/21 17:15 Est GFR (MDRD) Af Amer 91 mL/min (>60) 09/17/21 17:15 Est GFR (MDRD) Non-Af 75 mL/min (>60) 09/17/21 17:15 BUN/Creatinine Ratio 15.8 RATIO (10-20) 09/17/21 17:15 Glucose 103 mg/dL (74-106) 09/17/21 17:15 Microbiology: Microbiology 09/17/21 18:20 Nasal Secretion SARS-CoV-2 Antigen (Rapid) - Final 09/17/21 18:38 Mucosa - Nasopharyngeal Influenza Types A,B Direct FA (JOSE MIGUEL) - Final Weight used for dosin.3 kg Estimated Creatinine Clearance: 83.9 Goal Trough: 15-20 mcg/mL Pharmacy Plan for Drug Dosing: Pharmacy Service will continue to monitor and adjust dosing as required. Medications Vancomycin HCl 1,250 mg/ (Sodium Chloride) 275 mls @ 167 mls/hr IV Q12H SALLY Discontinued Medications Vancomycin HCl 1,750 mg/ (Sodium Chloride) 535 mls @ 250 mls/hr IV X1 ONE Stop: 09/17/21 21:00 Last Admin: 09/17/21 20:32 Dose: 250 mls/hr Documented by: Follow-Up Labs: Trough Vancomycin Labs to be done on [date and time ordered]: 09/19 @ 0800
[2021-09-17] MEDS: Potassium Chloride Oral Tablet 20 MEQ 40 MEQ PO (22:22)
[2021-09-17] MEDS: 0.9% Normal Saline 1,000 ML 150 ML IV (22:22)
[2021-09-17] MEDS: Famotidine 20 MG Tablet PO (22:22)
[2021-09-17 23:16] LABS: Lactic Acid 2.6 mmol/L (0.4-1.9)
[2021-09-18] VITALS (7 sets, daily range): BP systolic 86–118; BP diastolic 46–66; PULSE 81–88; RESP 16; TEMP 36.7–37.2; O2SAT 96–98
[2021-09-18 07:00] LABS: Hematocrit 30.4 % (40-54); Hemoglobin 10.4 g/dL (13.0-16.5); Mean Corp Hgb Conc 34.2 g/dL (32-36); Mean Corpuscular Hgb 30.4 pg (27.0-32.0); Mean Corpuscular Volume 88.9 fL (80-94); Mean Platelet Vol. 9.3 fl (6.2-12.0); POSITIVE COUNT YES; POSITIVE DIFFERENTIAL YES; POSITIVE MORPHOLOGY YES; Platelet Count 142 K/mm3 (150-450); RBC Distribution Width CV 15.3 % (11.6-14.6); RBC Distribution Width SD 46.3 fl (35.1-43.9); Red Blood Count 3.42 M/mm3 (4.6-6.2)
[2021-09-18 07:11] LABS: Differential Indicated MANUAL DIFF
[2021-09-18 07:12] LABS: ALB/GLOB Ratio 0.9 RATIO (0.9-2.4); AST(SGOT) 31 U/L (15-37); Alanine Aminotransfer ALT/SGPT 20 U/L (16-61); Albumin, Serum 2.5 g/dL (3.2-5.0); Alkaline Phosphatase 123 U/L (45-117); Anion Gap 5 (5-15); BUN 12 mg/dL (7-18); BUN/Creat Ratio 11.5 RATIO (10-20); Calcium,Total 7.4 mg/dL (8.5-10.1); Chloride 111 mmol/L (98-107); Creatinine, Serum 1.04 mg/dL (0.70-1.30); EST Glomerular Filtration Rate 89 mL/min (>60); Est Glom Filt Rate - Afr Amer 107 mL/min (>60); Globulin 2.7 g/dL (2.2-4.2); Glucose 92 mg/dL (74-106); Potassium 4.1 mmol/L (3.5-5.1); Protein, Total 5.2 g/dL (6.4-8.2); Sodium Level 140 mmol/L (136-145)
[2021-09-18 07:20] LABS: Total Cells Counted 100 (MANUAL DIFF)
[2021-09-18 07:21] LABS: Neutrophil-Band 10 % (0-5); Neutrophil-Segmented 56 % (47-70)
[2021-09-18 07:22] LABS: Blast 1 % (0-0); Lymphocyte 9 % (19-41); Monocyte 9 % (0-10)
[2021-09-18 07:23] LABS: Absolute Neutrophil Count 17.1 X10^3/uL (2.0-7.7); Neutrophil # 17.13 X10^3/uL (2.7-7.7); Platelet Estimate ADEQUATE (ADEQ); Red Cell Morphology NORM C+C NORMAL (NORM C&C)
[2021-09-18 07:24] LABS: Absolute Lymphocyte Count 2.34 X10^3/uL (0.83-4.51); Lymphocyte # 2.34 X10^3/ul (0.83-4.51); Promyelocyte 1 % (0-0)
[2021-09-18 07:25] LABS: Metamyelocyte 6 % (0-1); Myelocyte 8 % (0-0)
[2021-09-18] MEDS: 0.9% Normal Saline 1,000 ML 150 ML IV (07:40)
[2021-09-18] MEDS: Ondansetron 4 MG/2 ML Vial IV (07:41)
[2021-09-18] MEDS: Famotidine 20 MG Tablet PO ×2 (09:14→22:17)
[2021-09-18] MEDS: Enoxaparin 40 MG/0.4 ML Syringe SC (10:05)
--- NOTE | 2021-09-18 10:25 | CASEMGMT ---
HENRY BAEZA Assessment: Face to Face with pt for initial transition planning/care coordination assessment. RN ARYAN introduced self and role at [facility], pt voices understanding and consents to assessment. Pt is A/O x4 and answers all questions appropriately at this time. Pt sitting up in bed in no distress. Care providers, pharmacy, and demographics verified/updated. Admitting Dx: neutropenic fever PCP:Pt states his PCP retired, Mary at [facility]. He states he will stay at the clinic but has not formally switched doctors. Denies need for local in network PCP list. Specialists:Yael, onc; Ellen, uro Preferred Pharmacy: [facility] Retail Insurance: [place] Prescription Benefit: yes LW/HPOA: Pt denies having a LW/DPOA and denies need for info regarding AD. He states he is working on this. LNOK: Aida Morgan, mother Living Arrangements: Pt lives with son in a two story house with 3 steps to enter. Pt reports he is I in ADL's and denies concerns at home. Transportation: Pt drives self and denies concerns with transportation. DME/HHC/SNF: Pt denies having any DME in the home, previous HHC or SNF stays. Pt states no concerns with going home at time of dc. Pt states no further concerns/needs. CM to follow. Advised pt to ask CM if any further question/concerns/needs arise, voices understanding. Pt Goal: Home Plan: Home
[2021-09-18 11:27] LABS: Magnesium 1.3 mg/dL (1.6-2.6)
[2021-09-18 11:34] LABS: Magnesium 1.5 mg/dL (1.6-2.6)
--- NOTE | 2021-09-18 13:06 | CON.PCM.ON_ITS ---
Assessment & Plan Assessment/Plan (1) Fever of unknown origin: Status: Acute Code(s): R50.9 - Fever, unspecified Plan: Now afebrile without antipyretics on broad spectrum atb. Patient is advised to eat yogurt when he is able. Blood cultures x 2 are pending. Given current chemotherapy carries risks for associated pulmonary toxicity, it is reassuring that CXR was unremarkable and SpO2 is satisfactory. Orders entered for COVID PCR and respiratory molecular panel. (2) Testicular cancer: Status: Acute Code(s): C62.90 - Malignant neoplasm of unspecified testis, unspecified whether descended or undescended Qualifiers: Descendance of testis: descended Laterality: left Qualified Code(s): C62.12 - Malignant neoplasm of descended left testis Plan: Patient is exactly custodial through proposed course of BEP chemotherapy being administered with intent to cure. CBC reviewed, leukocytosis present in part d/t administration of G CSF on day 9 of this cycle (09/11/21), normocytic anemia is mild and platelets are preserved. Cycle 3 day 1 tentatively planned for 09/24/21. May consider repeating PFTs in the outpatient setting. Patient is counseled to ambulate often in his room during this admission and frequently use incentive spirometer. (3) CINV (chemotherapy-induced nausea and vomiting): Status: Acute Code(s): R11.2 - Nausea with vomiting, unspecified; T45.1X5A - Adverse effect of antineoplastic and immunosuppressive drugs, initial encounter Plan: Zofran and Compazine have been effective for Mr. Nickerson through first 2 cycles of BEP. PRN orders provided. May use antiemetics liberally. Support with Senna if not producing daily BMs. Case discussed with Dr. Miner, who was in agreement with the aforementioned plan. Will follow with more suggestions based outstanding lab results. In the event he is discharged prior to final cultures, COVID or resp panel being reported, he should follow up with [facility] on 09/24/21 as planned. HPI Consult Data Date of Service:: 09/18/21 PCP / Referring Provider: No Primary Care Phys Attending: Dr. Lavell Rand DO Chief Complaint Chief Complaint: testicular ca History of Present Illness History of Present Illness: Mr. Elbert Nickerson is a very pleasant 30y.o. gentleman with a PMH significant only for mild asthma and frequent skin infections who noticed swelling of L testes a year ago. It became painful so was referred to Dr. Hughes. He had a CT a/p on 06/20/2021 which showed L testicular swelling and retroperitoneal nodes. Had L radical orchiectomy on 06/20/2021. Pathology showed Mixed non-Seminoma. Initial staging studies showed MRI brain (07/23/2021) reported as unremarkable, CT c/a/p (07/20/2021) demonstrated retroperitoneal lymphadenopathy and subcentimeter pulmonary nodules right upper lobe, left lower lobe, right lower lobe and a bone scan (07/31/2021) demonstrated no evidence of skeletal metastatic disease. Thus, he was diagnosed with Testicular cancer, stage IIIA disease (pT2 cN3 M1a S)-YST and EC. Started therapy with BEP C1D1 on 08/13/2021. He received cycle 2 day 15 bleomycin yesterday morning. After leaving the infusion suite, he developed a fever with chills, reports t max 105 at home and he presented to [facility] ED yesterday evening. He was found to be febrile, tachyca rdic and hypotensive in the emergency department. CXR and UA were unremarkable. Labs showed white blood cell count of 30.9, ANC 21.9 mildly anemic hemoglobin 11.9 platelets preserved, potassium 3.2, lactic acid 2.2 and BUN 19, creatinine 1.2. Covid rapid negative, rapid flu negative. Blood cultures x2 were taken. He was subsequently admitted. Started on broad-spectrum antibiotics and support ed with IV hydration, Lovenox. Upon entering the room, the patient is resting in bed with mother, Aida at the bedside. Nausea is not well controlled at this time, unable to eat lunch. Reports one episode of emesis after breakfast. Nausea is typically well controlled with Zofran and Compazine at home. LBM earlier this morning. Specifically denies tinnitus, CP, palpitations, SOB, cough, swelling/pain of his extremities and any changes in his skin including rashes/lesions/wounds. Admits he had a runny nose and mild sore throat over the weekend, but no other symptoms. Interval History Interval History: Advanced Directives Power of Fiberglass Boat Maker: No Living Will: No COUNT INCLUDES [facility] Medical History (Updated 09/18/21 @ 15:40 by Leanna Zacarias WIRELESS COMMUNICATIONS ENGINEER, WIRELESS COMMUNICATIONS ENGINEER-C) Alcohol use Asthma Back pain Cancer Chipped tooth CINV (chemotherapy-induced nausea and vomiting) Easy bruising Encounter for education Eustachian salpingitis Fever of unknown origin Former smoker High cholesterol History of pain when walking Hx of perforation of tympanic membrane Injury of head and neck Lung nodules Testicle cancer Home Medications multivitamin 1 tab PO DAILY 07/16/21 [History Last Taken Unknown] ibuprofen 800 mg tablet 800 mg PO BID PRN tab 07/31/21 [History Last Taken Unknown] lidocaine-prilocaine 2.5 %-2.5 % topical cream 1 applic TOPICAL ONCE PRN 30 Days #30 g 08/06/21 [Rx Last Taken Unknown] prochlorperazine maleate 10 mg tablet 10 mg PO Q6H PRN #30 tab 08/06/21 [Rx Last Taken Unknown] oxycodone-acetaminophen [Endocet] 1 tab PO Q6H PRN 2 Days #5 tab 08/08/21 [Rx Last Taken Unknown] ondansetron 8 mg disintegrating tablet 8 mg PO Q8H PRN #30 tab 09/04/21 [Rx Last Taken Unknown] olanzapine [Zyprexa Zydis] 5 mg PO DAILY PRN 09/17/21 [History Last Taken Unknown] Allergy/AdvReac Type Severity Reaction Status Date / Time No Known Allergies Allergy Verified 08/27/21 08:30 Family History Grandfather Testicular cancer great grandfather Diabetes Father Diabetes Asthma Grandfather Alzheimer disease great grandfather Surgical History History of orchiectomy History of umbilical hernia repair Hx of LASIK Hx of myringotomy S/P radical unilateral orchiectomy Social History Smoking Status: Former smoker alcohol intake: current details: occasional wine (maybe once a month substance use type: does not use caffeine: Yes Type: carbonated beverages Number of servings: 2 ROS Constitutional Constitutional: Reports difficulty sleeping, headache(s), weakness and other Details: afebrile without antipyretics since 10 pm last evening ; Denies body ache(s), chills, frequent falls or weight loss Eyes Eyes: Denies change in vision Cardiovascular Cardiovascular: Reports fatigue; Denies chest pain, dizziness, edema or palpitations Respiratory/Chest Respiratory/Chest: Denies cough, dyspnea on exertion, hemoptysis or wheezing Gastrointestinal Gastrointestinal: Reports early satiety, nausea and vomiting; Denies abdominal pain, constipation, diarrhea or dysphagia Genitourinary Genitourinary: Denies burning urination, urinary frequency, urinary incontinence or urinary urgency Integumentary Integumentary: Reports alopecia; Denies lesions, rash or wounds Neurologic Neurologic: Reports headache(s); Denies dizziness, focal weakness, numbness or paresthesias Psychiatric Psychiatric: Denies anxiety or depression Hematologic/Lymphatic Hematologic/Lymphatic: Denies easy bleeding or easy bruising Physical Exam Const alert, oriented x3 and no apparent distress General Appearance: cooperative and ill appearing HEENT normocephalic and head/scalp atraumatic Mouth: oral and palatal mucosa normal, No lesions and No thrush Eyes PERRL, EOMs intact bilaterally, conjunctivae normal and no scleral icterus Neck no lymphadenopathy and supple Chest Chest Narrative: port right upper chest accessed with gripper and covered with DSD, without erythema or increased warmth Resp normal respiratory effort, normal air movement and clear to auscultation bilaterally Effort and Inspection: able to speak in complete sentences Auscultation: Negative for rhonchi or wheezes Cardio regular rate, regular rhythm, S1 normal heart sound, S2 normal heart sound, no murmurs and peripheral pulses 2+ throughout GI normal to inspection, nondistended, normoactive bowel sounds, soft to palpation and non-tender; Negative for hepatosplenomegaly no CVA tenderness Extremity normal to inspection, no clubbing, cyanosis or edema and no calf tenderness Skin no rashes or lesions noted, no jaundice and no petechiae General Skin Exam: Negative for ecchymosis Neuro oriented x3 and CN's II-XII intact bilaterally Psych mental status grossly normal Attitude: calm and engaged Vital Signs Temperature 98.1 F 09/18/21 09:10 Temperature Source Oral 09/18/21 09:10 Pulse Rate 81 09/18/21 09:10 Pulse Strength Normal (2+) 09/17/21 21:44 Respiratory Rate 16 09/18/21 09:10 Respiratory Effort 09/17/21 16:28 Respiratory Pattern Normal 09/17/21 16:28 Blood Pressure 106/60 09/18/21 09:10 Blood Pressure Mean 75 09/18/21 09:10 Blood Pressure Source Monitor 09/18/21 09:10 Blood Pressure Position Semi-Fowlers 09/18/21 09:10 Blood Pressure Location Right Arm 09/18/21 09:10 Pulse Ox 98 09/18/21 09:10 Oxygen Delivery Method Room Air 09/18/21 09:10 Laboratory Results - last 24 hr 09/17/21 17:15: WBC 22.3 H, RBC 3.87 L, Hgb 11.8 L, Hct 33.5 L, MCV 86.6, MCH 30.5, MCHC 35.2, RDW Std Deviation 43.9, RDW Coeff of Phil 14.8 H, Plt Count 155, MPV 8.9, Immature Gran % (Auto) WIRELESS COMMUNICATIONS ENGINEER, Neut % (Auto) WIRELESS COMMUNICATIONS ENGINEER, Lymph % (Auto) WIRELESS COMMUNICATIONS ENGINEER, [place] % (Auto) WIRELESS COMMUNICATIONS ENGINEER, Eos % (Auto) WIRELESS COMMUNICATIONS ENGINEER, Baso % (Auto) WIRELESS COMMUNICATIONS ENGINEER, Absolute Neuts (auto) 16.1 H, Absolute Lymphs (auto) 3.57, Total Counted 100, Neutrophils % (Manual) 67, Band Neutrophils % 5, Lymphocytes % (Manual) 16 L, Monocytes % (Manual) 4, Basophils % (Manual) 2 H, Metamyelocytes % 5 H, Blast Cells % 1 H*, Nucleated RBC % WIRELESS COMMUNICATIONS ENGINEER, Nucleated RBCs/100 WBC 1, Diff Path Review December, Platelet Estimate ADEQUATE, RBC Morphology NORM C+C 09/17/21 17:15: Sodium 136, Potassium 3.2 L, Chloride 102, Carbon Dioxide 28.0, Anion Gap 6, BUN 19 H, Creatinine 1.20, Estim Creat Clear Calc 83.90, Est GFR (MDRD) Af Amer 91, Est GFR (MDRD) Non-Af 75, BUN/Creatinine Ratio 15.8, Glucose 103, Calcium 8.7, Total Bilirubin 0.30, AST 48 H, ALT 22, Alkaline Phosphatase 188 H, Total Protein 6.4, Albumin 3.3, Globulin 3.1, Albumin/Globulin Ratio 1.1 09/17/21 17:15: Lactic Acid 2.2 H* 09/17/21 17:15: Magnesium 1.3 L 09/17/21 19:21: Urine Color Yellow, Urine Clarity Clear, Urine pH 8.0, Ur Specific [place] 1.015, Urine Protein Negative, Urine Glucose (UA) Normal, Urine Ketones Negative, Urine Occult Blood Negative, Urine Nitrite Negative, Urine Bilirubin Negative, Urine Urobilinogen Normal, Ur Leukocyte Esterase Negative, Urine RBC 0 SEEN, Urine WBC 0 SEEN, Ur Squamous Epith Cells 0 SEEN, Urine Bacteria 0 SEEN, Urine Mucus 0 SEEN 09/17/21 22:21: Lactic Acid 2.6 H* 09/17/21 : Magnesium Cancelled 09/18/21 04:15: Magnesium 1.5 L 09/18/21 04:15: WBC 26.0 H, RBC 3.42 L, Hgb 10.4 L, Hct 30.4 L, MCV 88.9, MCH 30.4, MCHC 34.2, RDW Std Deviation 46.3 H, RDW Coeff of Phil 15.3 H, Plt Count 142 L, MPV 9.3, Neut % (Auto) Not Reportable, Absolute Neuts (auto) 17.1 H, Absolute Lymphs (auto) 2.34, Total Counted 100, Neutrophils % (Manual) 56, Band Neutrophils % 10 H, Lymphocytes % (Manual) 9 L, Monocytes % (Manual) 9, Metamyelocytes % 6 H, Myelocytes % 8 H, Promyelocytes % 1 H, Blast Cells % 1 H*, Diff Path Review December, Platelet Estimate ADEQUATE, RBC Morphology NORM C+C 09/18/21 04:15: Sodium 140, Potassium 4.1, Chloride 111 H, Carbon Dioxide 24.0, Anion Gap 5, BUN 12, Creatinine 1.04, Estim Creat Clear Calc 101.80, Est GFR (MDRD) Af Amer 107, Est GFR (MDRD) Non-Af 89, BUN/Creatinine Ratio 11.5, Glucose 92, Calcium 7.4 L, Total Bilirubin 0.10 L, AST 31, ALT 20, Alkaline Phosphatase 123 H, Total Protein 5.2 L, Albumin 2.5 L, Globulin 2.7, Albumin/Globulin Ratio 0.9 Microbiology 09/17/21 18:20 Nasal Secretion SARS-CoV-2 Antigen (Rapid) - Final 09/17/21 18:38 Mucosa - Nasopharyngeal Influenza Types A,B Direct FA (JOSE MIGUEL) - Final Diagnostic Data Chest X-Ray 02/14/22 17:33 IMPRESSION: There are no acute findings. Electronically Signed: Zeb Ernst MD at 18:03 EST ,
[2021-09-18] MEDS: proCHLORPERazine 10 MG/2 ML Vial IV (13:45)
--- NOTE | 2021-09-18 14:12 | PN.HOSP_ITS ---
Subjective Subjective Feels ok. Later, after I saw him, he was complaining of nausea. Denies any skin lesions. denies any new issues with previously orchiectomy site. Objective Data Objective Data Vital Signs: Vital Signs Temp Pulse Resp BP Pulse Ox 36.7 C 81 16 106/60 98 09/18/21 09:10 09/18/21 09:10 09/18/21 09:10 09/18/21 09:10 09/18/21 09:10 Oxygen Delivery Method Room Air Weight: 69.3 kg Body Mass Index (BMI) 21.9 Intake & Output: Intake and Output for Last 24 Hours 09/16/21 09/17/21 09/18/21 23:59 23:59 23:59 Intake Total 2207.5 / 2207.5 2340 / 2340 Balance 2207.5 / 2207.5 2340 / 2340 Lab / Micro Data Result Diagrams: 09/18/21 04:15 09/18/21 04:15 Labs: Laboratory Results - last 24 hr 09/17/21 17:15: WBC 22.3 H, RBC 3.87 L, Hgb 11.8 L, Hct 33.5 L, MCV 86.6, MCH 30.5, MCHC 35.2, RDW Std Deviation 43.9, RDW Coeff of Phil 14.8 H, Plt Count 155, MPV 8.9, Immature Gran % (Auto) WEB PRODUCTION MANAGER, Neut % (Auto) WEB PRODUCTION MANAGER, Lymph % (Auto) WEB PRODUCTION MANAGER, [place] % (Auto) WEB PRODUCTION MANAGER, Eos % (Auto) WEB PRODUCTION MANAGER, Baso % (Auto) WEB PRODUCTION MANAGER, Absolute Neuts (auto) 16.1 H, Absolute Lymphs (auto) 3.57, Total Counted 100, Neutrophils % (Manual) 67, Band Neutrophils % 5, Lymphocytes % (Manual) 16 L, Monocytes % (Manual) 4, Basophils % (Manual) 2 H, Metamyelocytes % 5 H, Blast Cells % 1 H*, Nucleated RBC % WEB PRODUCTION MANAGER, Nucleated RBCs/100 WBC 1, Diff Path Review December, Platelet Estimate ADEQUATE, RBC Morphology NORM C+C 09/17/21 17:15: Sodium 136, Potassium 3.2 L, Chloride 102, Carbon Dioxide 28.0, Anion Gap 6, BUN 19 H, Creatinine 1.20, Estim Creat Clear Calc 83.90, Est GFR (MDRD) Af Amer 91, Est GFR (MDRD) Non-Af 75, BUN/Creatinine Ratio 15.8, Glucose 103, Calcium 8.7, Total Bilirubin 0.30, AST 48 H, ALT 22, Alkaline Phosphatase 188 H, Total Protein 6.4, Albumin 3.3, Globulin 3.1, Albumin/Globulin Ratio 1.1 09/17/21 17:15: Lactic Acid 2.2 H* 09/17/21 17:15: Magnesium 1.3 L 09/17/21 19:21: Urine Color Yellow, Urine Clarity Clear, Urine pH 8.0, Ur Specific [place] 1.015, Urine Protein Negative, Urine Glucose (UA) Normal, Urine Ketones Negative, Urine Occult Blood Negative, Urine Nitrite Negative, Urine Bilirubin Negative, Urine Urobilinogen Normal, Ur Leukocyte Esterase Negative, Urine RBC 0 SEEN, Urine WBC 0 SEEN, Ur Squamous Epith Cells 0 SEEN, Urine Bacteria 0 SEEN, Urine Mucus 0 SEEN 09/17/21 22:21: Lactic Acid 2.6 H* 09/17/21 : Magnesium Cancelled 09/18/21 04:15: Magnesium 1.5 L 09/18/21 04:15: WBC 26.0 H, RBC 3.42 L, Hgb 10.4 L, Hct 30.4 L, MCV 88.9, MCH 30.4, MCHC 34.2, RDW Std Deviation 46.3 H, RDW Coeff of Phil 15.3 H, Plt Count 142 L, MPV 9.3, Neut % (Auto) Not Reportable, Absolute Neuts (auto) 17.1 H, Absolute Lymphs (auto) 2.34, Total Counted 100, Neutrophils % (Manual) 56, Band Neutrophils % 10 H, Lymphocytes % (Manual) 9 L, Monocytes % (Manual) 9, Metamyelocytes % 6 H, Myelocytes % 8 H, Promyelocytes % 1 H, Blast Cells % 1 H*, Diff Path Review May foll, Platelet Estimate ADEQUATE, RBC Morphology NORM C+C 09/18/21 04:15: Sodium 140, Potassium 4.1, Chloride 111 H, Carbon Dioxide 24.0, Anion Gap 5, BUN 12, Creatinine 1.04, Estim Creat Clear Calc 101.80, Est GFR (MDRD) Af Amer 107, Est GFR (MDRD) Non-Af 89, BUN/Creatinine Ratio 11.5, Glucose 92, Calcium 7.4 L, Total Bilirubin 0.10 L, AST 31, ALT 20, Alkaline Phosphatase 123 H, Total Protein 5.2 L, Albumin 2.5 L, Globulin 2.7, Albumin/Globulin Ratio 0.9 Micro: Microbiology 09/17/21 18:20 Nasal Secretion SARS-CoV-2 Antigen (Rapid) - Final 09/17/21 18:38 Mucosa - Nasopharyngeal Influenza Types A,B Direct FA (JOSE MIGUEL) - Final Radiography Diagnostic Testing: Radiology Impression Chest X-Ray 09/17/21 17:33 IMPRESSION: There are no acute findings. Electronically Signed: Zeb Ernst MD at 18:03 EST , Physical Exam Const alert and no apparent distress Resp normal respiratory effort, no retractions, no use of accessory muscles and clear to auscultation bilaterally Cardio regular rate, regular rhythm, S1 normal heart sound and S2 normal heart sound GI normal to inspection, nondistended, normoactive bowel sounds, soft to palpation and non-distended Extremity normal to inspection Assessment & Plan Assessment/Plan (1) Fever: QUALIFIERS: Fever type: unspecified Qualified Code(s): R50.9 - Fever, unspecified PLAN: 1. Fever neutropenic fever ruled out--he is not neutropenic infectious work up so far negative COVID PCR and resp panel ordered by oncology monitor overnight not septic 2. Stage III testicular CA oncology following resume chemo when deemed appropriate by oncology 3. Nausea chronic ondansetron 4. VTE prophylaxis: LMWH Charges/Coding Visit Charges Inpatient E&M: 38342 Subs Hosp L2
[2021-09-18] MEDS: Ondansetron 4 MG/2 ML Vial 8 MG IV (20:20)
[2021-09-19] MEDS: 0.9% Saline Lock 10 ML Syringe IV ×2 (00:35→09:15)
[2021-09-19] MEDS: proCHLORPERazine 10 MG/2 ML Vial IV (00:35)
[2021-09-19 02:39] VITALS: BP 116/68; PULSE 79; RESP 16; TEMP 37.7; O2SAT 98
[2021-09-19 07:47] VITALS: BP 115/71; PULSE 81; RESP 16; TEMP 36.9; O2SAT 97
[2021-09-19 08:22] VITALS: BP 123/65; PULSE 90; RESP 16; TEMP 37.3; O2SAT 98
--- NOTE | 2021-09-19 08:36 | DCINST_ITS ---
Discharge Instructions Diet Discharge Diet: No restrictions Dressing / Incision Call your doctor if you observe: Fever of 101 or Higher and Shortness of breath Follow Up Care Test Results: Test results from this visit will be discussed in further detail at your follow-up appointment, if applicable. Discharge Plan Admission Admit Date/Time: 09/17/21 20:04 Primary Reason for Your Visit: fever Attending Provider: Lavell Rand Primary Care Provider: Care Physician,No Primary Consulting Providers: Fletcher Madera ; Sagar Miner ; Prem Treadwell ; Toni Rosario ; Gabriel Nesbitt ; Harvey Branham ; Shai Paris ; Leanna Zacarias INDUSTRIAL GAS SERVICER SUPERVISOR Discharge Orders/Prescriptions Prescriptions: Continued multivitamin Tablet 1 tab PO DAILY RF: 0 lidocaine-prilocaine 2.5-2.5 % cream 1 applic topical ONCE PRN (Reason: Port access) 30 Days Qty: 30 RF: 2 prochlorperazine maleate 10 mg tablet 10 mg PO Q6H PRN (Reason: nausea and vomiting) Qty: 30 RF: 2 ibuprofen 800 mg tablet 800 mg PO BID PRN (Reason: Pain) RF: 0 oxycodone-acetaminophen [Endocet] 5-325 mg tablet 1 tab PO Q6H PRN (Reason: pain) 2 Days Qty: 5 RF: 0 olanzapine [Zyprexa Zydis] 5 mg tablet,disintegrating 5 mg PO DAILY PRN (Reason: Nausea) RF: 0 ondansetron 8 mg tablet,disintegrating 8 mg PO Q8H PRN (Reason: nausea and vomiting) Qty: 30 RF: 2 Referrals / Follow Up: Sagar Miner MD [NON-STAFF] - In 1 Week Care Physician,No Primary [Primary Care Provider] - Disposition Disposition (needs filled in before D/C Order can be placed): Home, Self Care
--- NOTE | 2021-09-19 08:40 | PCM.DC.SUM ---
Providers Date of Admission: 09/17/21 Primary Care Physician: Lizzie [facility] Consultations 09/17/21 21:07 Consult: Oncology/Hematology Routine Consulting Provider: [facility] ([facility]) Reason for Consult: Neutropenic fever EMERGENT Consult: No MD Notified: Yes Date Notified: 09/18/21 Time Notified: 07:55 Method of Notification: Text Reason For Visit: NEUTROPNEIC FEVER Diagnosis Discharge Diagnosis (1) Fever of unknown origin: Status: Acute Code(s): R50.9 - Fever, unspecified (2) Testicular cancer: Status: Acute Code(s): C62.90 - Malignant neoplasm of unspecified testis, unspecified whether descended or undescended Qualifiers: Descendance of testis: descended Laterality: left Qualified Code(s): C62.12 - Malignant neoplasm of descended left testis (3) CINV (chemotherapy-induced nausea and vomiting): Status: Acute Code(s): R11.2 - Nausea with vomiting, unspecified; T45.1X5A - Adverse effect of antineoplastic and immunosuppressive drugs, initial encounter Medications at Discharge Home Medications multivitamin 1 tab PO DAILY 07/16/21 ibuprofen 800 mg tablet 800 mg PO BID PRN tab 07/31/21 lidocaine-prilocaine 2.5 %-2.5 % topical cream 1 applic TOPICAL ONCE PRN 30 Days #30 g 08/06/21 prochlorperazine maleate 10 mg tablet 10 mg PO Q6H PRN #30 tab 08/06/21 oxycodone-acetaminophen [Endocet] 1 tab PO Q6H PRN 2 Days #5 tab 08/08/21 ondansetron 8 mg disintegrating tablet 8 mg PO Q8H PRN #30 tab 09/04/21 olanzapine [Zyprexa Zydis] 5 mg PO DAILY PRN 09/17/21 Hospital Course Operations None Procedures None Summary of Care Provided Minutes Spent on Discharge: 28 Hospital Course: 30-year-old male with a history of testicular cancer undergoing chemotherapy presents with fever. Concern was for him being immunocompromise patient was brought in and observed. It was initially documented patient had neutropenic fever, however the patient had leukocytosis and his absolute neutrophils were elevated, his percent neutrophils was not reportable. Patient was started on broad-spectrum antibiotics with piperacillin/tazobactam and vancomycin. Patient underwent an extensive infectious work-up including respiratory panel, urine culture, influenza, Covid rapid and PCR and blood cultures all of which are negative at the time of this dictation. Patient overall is feeling better. In the absence of any definitive etiology, patient can be discharged home today. Of note, patient was not hypoxic. Patient is scheduled to follow-up with oncology next week to resume his chemotherapy. At this time there is no restrictions in regards to him resuming chemotherapy. Physical Exam Const alert and no apparent distress Neck no lymphadenopathy Resp normal respiratory effort, no retractions, no use of accessory muscles and clear to auscultation bilaterally Cardio regular rate, regular rhythm, S1 normal heart sound and S2 normal heart sound GI normal to inspection, nondistended, normoactive bowel sounds, soft to palpation, non-tender and non-distended Extremity normal to inspection Weight / BMI Weight Weight: 69 kg Body Mass Index (BMI) 21.9 ABG / Lab / Microbiology Data Result Diagrams: 09/18/21 04:15 09/18/21 04:15 Laboratory: Laboratory Results - last 24 hr 09/17/21 17:15: Magnesium 1.3 L 09/17/21 : Magnesium Cancelled 09/18/21 04:15: Magnesium 1.5 L 09/18/21 15:26: COVID-19 ([facility]) Cancelled 09/18/21 15:26: COVID-19 ([facility]IL) Not Detected Microbiology: Microbiology 09/18/21 15:26 Mucosa - Nose Respiratory Panel (PCR) - Final 09/17/21 18:20 Nasal Secretion SARS-CoV-2 Antigen (Rapid) - Final 09/17/21 18:38 Mucosa - Nasopharyngeal Influenza Types A,B Direct FA (JOSE MIGUEL) - Final D/C Instructions Discharge Diet: No restrictions Call your doctor if you observe: Fever of 101 or Higher and Shortness of breath Meaningful Use Info Meaningful Use Diagnoses (Choose all that apply): None applicable Discharge Plan Admission Admit Date/Time: 09/17/21 20:04 Primary Reason for Your Visit: fever Attending Provider: Lavell Rand Primary Care Provider: Care Physician,No Primary Consulting Providers: Fletcher Madera ; Sagar Miner ; Prem Treadwell ; Toni Rosario ; Gabriel Nesbitt ; Harvey Branham ; Shai Paris ; Leanna Zacarias [employer] AGRON[employer]IST Discharge Orders/Prescriptions Prescriptions: Continued multivitamin Tablet 1 tab PO DAILY RF: 0 lidocaine-prilocaine 2.5-2.5 % cream 1 applic topical ONCE PRN (Reason: Port access) 30 Days Qty: 30 RF: 2 prochlorperazine maleate 10 mg tablet 10 mg PO Q6H PRN (Reason: nausea and vomiting) Qty: 30 RF: 2 ibuprofen 800 mg tablet 800 mg PO BID PRN (Reason: Pain) RF: 0 oxycodone-acetaminophen [Endocet] 5-325 mg tablet 1 tab PO Q6H PRN (Reason: pain) 2 Days Qty: 5 RF: 0 olanzapine [Zyprexa Zydis] 5 mg tablet,disintegrating 5 mg PO DAILY PRN (Reason: Nausea) RF: 0 ondansetron 8 mg tablet,disintegrating 8 mg PO Q8H PRN (Reason: nausea and vomiting) Qty: 30 RF: 2 Referrals / Follow Up: Sagar Miner MD [NON-STAFF] - In 1 Week Care Physician,No Primary [Primary Care Provider] - Disposition Disposition (needs filled in before D/C Order can be placed): Home, Self Care Charges/Coding Visit Charges Inpatient E&M: [id number] Disch Hosp
[2021-09-19 09:27] LABS: Pathologist Review Reviewed
[2021-09-19 09:44] LABS: Pathologist Review Reviewed
== END 2021-09-19 10:04 | disposition home or self-care (01) | DRG 864 ==
LOC: ED 19:54 → MS3 20:16
PROVIDERS: Nurse Practitioner Family; Admitting Provider Internal Medicine; Emergency Provider Emergency Medicine
DX: R50.9 Fever, unspecified (principal); D84.9 Immunodeficiency, unspecified; C62.12 Malignant neoplasm of descended left testis; D72.829 Elevated white blood cell count, unspecified; E78.00 Pure hypercholesterolemia, unspecified; E86.0 Dehydration; E87.6 Hypokalemia; J45.909 Unspecified asthma, uncomplicated; R11.2 Nausea with vomiting, unspecified; Z80.43 Family history of malignant neoplasm of testis; Z87.891 Personal history of nicotine dependence; Z86.16 Personal history of COVID-19; T45.1X5A Adverse effect of antineoplastic and immunosuppressive drugs, initial encounter; Z20.822 Contact with and (suspected) exposure to COVID-19; Z79.899 Other long term (current) drug therapy; Z90.79 Acquired absence of other genital organ(s)
CPT/HCPCS: 36415; 71045; 80053; 81001; 83605; 83735; 85025; 87040; 87086; 87088; 87426; 87633; 87635; 87804; 93005; 97802; 99251; 99285; J7030; J7040; J7050; A4216; G0463; J2405; U0003; U0005

== ENCOUNTER 2021-10-03 06:51 | Outpatient (CLI) | payer BC, SELFPAY ==
--- NOTE | 2021-10-03 06:56 | CT_ITS ---
STUDY: CT CHEST, ABDOMEN T PELVIS WITH CONTRAST REASON FOR EXAM: Male, 31 years old. Testicular cancer. Follow-up after treatment. RADIATION DOSAGE (If Supplied By Facility): CTDIvol = ( 9.56 ) mGy, DLP = ( 785.85 ) mGycm TECHNIQUE: Transaxial imaging was performed following intravenous administration of IV 100mL Isovue-300. Multiplanar coronal and sagittal images were reformatted. Individualized dose optimization techniques were used for this CT. COMPARISON: 07/20/21 FINDINGS: There is a right-sided port with its tip in the superior vena cava. The previously seen pulmonary nodules have decreased in size. There is a 3 mm nodule in the right upper lobe (previously 5 mm). There is a 2 mm nodule in the superior segment of the left lower lobe (previously 6 mm). There is a 6 mm pleural-based nodule posteriorly in the right lower lobe (previously 7 mm). There are no new pulmonary nodules or masses. There are no pulmonary infiltrates or pleural effusions. There is no pneumothorax. The heart and pericardium are within normal limits. There is no thoracic lymphadenopathy. There is no evidence of thoracic aortic aneurysm. There are no calcified gallstones present. The liver is within normal limits. There are no suspicious hepatic lesions. The spleen is normal in size. The pancreas is within normal limits. The adrenal glands are within normal limits. There are no renal or ureteral stones. There is no hydronephrosis. There are no focal renal lesions. Normal visualized stomach. There is no bowel obstruction or inflammation. The appendix is not visualized, but there are no findings to suggest acute appendicitis. The abdominal aorta is normal in caliber. Again noted is retroperitoneal lymphadenopathy in the periaortic region. This is decreased in size. The largest node currently measures 1.5 x 1.2 cm (previously 2.7 x 2.5 cm). There are no new enlarged lymph nodes. There is no free air, free fluid or fluid collection. There are no destructive osseous lesions. CT/CT Chest, Abd, Pel w/Contrast IMPRESSION: Favorable response to treatment with interval decrease in the previously seen pulmonary nodules and retroperitoneal lymphadenopathy. No new or suspicious findings. Electronically Signed: Newton Marcos MD at 10:36 EST ,
[2021-10-03] MEDS: 0.9% Saline Lock 10 ML Syringe IV (07:22)
== END 2021-10-03 23:59 | disposition home or self-care (01) ==
LOC: CT 06:53
PROVIDERS: Referring Provider Internal Medicine Medical Oncology; Visit Provider Internal Medicine Medical Oncology
DX: C62.12 Malignant neoplasm of descended left testis (principal); Z08 Encounter for follow-up examination after completed treatment for malignant neoplasm
CPT/HCPCS: 71260; 74177; Q9967; A4216

== ENCOUNTER → 2021-12-20 | Outpatient (CLI) | payer BC, SELFPAY ==
--- NOTE | 2021-12-20 08:10 | CT_ITS ---
STUDY: CT CHEST, ABDOMEN T PELVIS WITH CONTRAST REASON FOR EXAM: Male, 31 years old. MONITORING TESTICULAR CA AFTER TREATMENT-IV ONLY RADIATION DOSAGE (If Supplied By Facility): CTDIvol = ( 8.44 ) mGy, DLP = ( 830.61 ) mGycm TECHNIQUE: Transaxial imaging was performed following intravenous administration of IV 100mL Isovue-370. Multiplanar coronal and sagittal images were reformatted. Individualized dose optimization techniques were used for this CT. COMPARISON: Comparison is made with prior examination 10/03/2021. FINDINGS: CHEST A right-sided portacatheter is seen with the tip in the superior vena cava. Stable small benign-appearing bilateral axillary lymph nodes. Stable 7 mm noncalcified nodule in the right lower lobe as seen on axial image #65. Stable 3 mm pleural-based nodule in the right upper lobe. Stable 2 mm noncalcified nodule in the superior segment of the left lower lobe. There is no demonstrated pleural abnormality. Normal heart and pericardium. Normal mediastinum. Normal hilar regions. Normal unenhanced pulmonary arteries. Normal aorta arch and descending thoracic aorta. Normal osseous structures. There is no demonstrated abnormality of the visualized upper abdomen. ABDOMEN Normal liver. Normal gallbladder and extrahepatic biliary system. Normal spleen. Normal pancreas. Normal bilateral adrenal glands. Normal right kidney. Normal left kidney. Normal visualized stomach. Normal small intestine. Normal colon. The appendix is visualized and appears normal. Normal abdominal aorta. Normal inferior vena cava. Slight decrease in size of the left retroperitoneal lymph node. It presently measures 1.5 cm. Normal abdominal wall. Normal osseous structures. PELVIS Mild degree of diffuse bladder wall thickening. Normal visualized small intestine. Normal visualized colon. There is no pelvic fluid. There is no pelvic lymphadenopathy or mass lesion. Normal visualized pelvic arteries. CT/CT Chest, Abd, Pel w/Contrast IMPRESSION: Essentially stable examination. Electronically Signed: Zhang Ardon MD at 10:59 EDT ,
== END | disposition home or self-care (01) ==
LOC: CT 08:09
PROVIDERS: Referring Provider Internal Medicine Medical Oncology; Visit Provider Internal Medicine Medical Oncology
DX: C62.90 Malignant neoplasm of unspecified testis, unspecified whether descended or undescended (principal)
CPT/HCPCS: 71260; 74177; A4216

== ENCOUNTER → 2022-01-10 | Outpatient (CLI) | payer BC, SELFPAY ==
--- NOTE | 2022-01-10 16:55 | RAD_ITS ---
EXAM: XR CERVICAL SPINE, 4 OR 5 VIEWS CLINICAL INDICATION: NECK PAIN TECHNIQUE: Frontal, lateral and bilateral oblique views of the cervical spine. This report was created using [employer] report generation technology. COMPARISON: None. FINDINGS: VERTEBRAE: Unremarkable. Preserved vertebral body height. No acute fracture. No spondylolisthesis. Preservation of the normal cervical lordosis. No significant facet arthropathy. DISC SPACES: Unremarkable. Disc spaces are maintained. SOFT TISSUES: Unremarkable. No prevertebral soft tissue widening. LUNG APICES: Clear. RAD/Cerv Spine 2 or 3 Views IMPRESSION: No evidence of acute fracture or spondylolisthesis. Electronically Signed: Sesar Ch MD at 17:12 EDT ,
== END | disposition home or self-care (01) ==
LOC: RAD 16:53
PROVIDERS: Referring Provider Internal Medicine Medical Oncology; Visit Provider Internal Medicine Medical Oncology
DX: M54.2 Cervicalgia (principal)
CPT/HCPCS: 72040

== ENCOUNTER → 2022-02-07 | Outpatient (CLI) | payer BC, SELFPAY ==
--- NOTE | 2022-02-07 06:34 | MRI_ITS ---
EXAM: MR HEAD WITHOUT AND WITH INTRAVENOUS CONTRAST CLINICAL INDICATION: NECK PAIN TESTICULAR CANCER TECHNIQUE: Multiplanar and multisequence MR images of the brain were obtained without and with intravenous contrast. This report was created using [employer] report generation technology. CONTRAST: IV 14ml Dotarem COMPARISON: MR Head dated 07/23/2021 FINDINGS: BRAIN AND EXTRA-AXIAL SPACES: Unremarkable. No intra- or extra-axial hemorrhage. No evidence of acute infarct. No intracranial mass or mass effect. There is preservation of the root/white matter interface. Posterior fossa structures are unremarkable. Ventricles are appropriate for age. No hydrocephalus. Basal cisterns are patent. No abnormal contrast enhancement. SELLA: Unremarkable. Normal sella turcica, pituitary gland, infundibular stalk, optic chiasm and hypothalamus. AUDITORY SYSTEM: Unremarkable. The internal auditory canals are patent. BONES/JOINTS: Unremarkable. No discrete lytic or blastic abnormalities. SINUSES: 16 mm left maxillary mucous retention cyst again noted. MASTOID AIR CELLS: Unremarkable as visualized. Clear. ORBITS: Unremarkable as visualized. Both globes, extraocular muscles, optic nerves and retrobulbar fat appear unremarkable. VASCULATURE: Unremarkable as visualized. Normal flow voids in the major intracranial circulation. MRI/Brain W/WO Contrast IMPRESSION: No intracranial abnormality. No interval change. Electronically Signed: Ken Gonzlaez MD at 14:27 EDT ,
--- NOTE | 2022-02-07 06:34 | MRI_ITS ---
EXAM: MR THORACIC SPINE WITHOUT AND WITH INTRAVENOUS CONTRAST CLINICAL INDICATION: NECK PAIN TESTICULAR CANCER TECHNIQUE: Multiplanar and multisequence MR images of the thoracic spine without and with intravenous contrast. This report was created using [employer] report [employer] technology. CONTRAST: IV 14ml Dotarem COMPARISON: None. FINDINGS: VERTEBRAE: Unremarkable. No fracture. Normal vertebral bodies and posterior elements. Normal alignment. There is preservation of the normal thoracic kyphosis. No scoliosis. DISCS/SPINAL CANAL/NEURAL FORAMINA: Unremarkable. Normal disc height and morphology. Normal spinal canal and neuroforamina. SPINAL CORD: Unremarkable. Normal in signal and morphology. Normal conus medullaris. No abnormal contrast enhancement. SOFT TISSUES: Unremarkable. MRI/Spine Thoracic W/WO Contrast IMPRESSION: Unremarkable MRI of the thoracic spine with and without contrast. Electronically Signed: Ken Gonzalez MD at 11:25 EDT Reading Location ID and State: [facility] / [place] Tel , Service support ,
--- NOTE | 2022-02-07 06:34 | MRI_ITS ---
EXAM: MR CERVICAL SPINE WITHOUT AND WITH INTRAVENOUS CONTRAST CLINICAL INDICATION: NECK PAIN TESTICULAR CANCER TECHNIQUE: Multiplanar and multisequence MR images of the cervical spine without and with intravenous contrast were performed. This report was created using [employer] report [employer] technology. CONTRAST: IV 14ml Dotarem COMPARISON: None. FINDINGS: VERTEBRAE: Unremarkable. Normal vertebral bodies and posterior elements. Normal alignment. Normal craniocervical junction and cervicothoracic junction. No spondylolisthesis. There is preservation of the normal cervical lordosis. SPINAL CORD: Unremarkable in signal and morphology. SOFT TISSUES: Unremarkable. No prevertebral soft tissue swelling. No abnormal contrast enhancement LYMPH NODES: Unremarkable. There is no cervical adenopathy. DISCS/SPINAL CANAL/NEURAL FORAMINA: C2-C3: Unremarkable. Normal disc height and morphology. Normal spinal canal. Normal neuroforamina. C3-C4: Unremarkable. Normal disc height and morphology. Normal spinal canal. Normal neuroforamina. C4-C5: Unremarkable. Normal disc height and morphology. Normal spinal canal. Normal neuroforamina. C5-C6: Unremarkable. Normal disc height and morphology. Normal spinal canal. Normal neuroforamina. C6-C7: Unremarkable. Normal disc height and morphology. Normal spinal canal. Normal neuroforamina. C7-T1: Unremarkable. Normal disc height and morphology. Normal spinal canal. Normal neuroforamina. MRI/Spine Cervical W/WO Contrast IMPRESSION: Unremarkable MRI of the cervical spine. Electronically Signed: Ken Gonzalez MD at 11:33 EDT Reading Location ID and State: [facility] / [place] Tel , Service support ,
[2022-02-07] MEDS: 0.9% Saline Lock 10 ML Syringe IV (08:25)
== END | disposition home or self-care (01) ==
LOC: MRI 06:34
PROVIDERS: Referring Provider Internal Medicine Medical Oncology; Visit Provider Internal Medicine Medical Oncology
DX: C62.90 Malignant neoplasm of unspecified testis, unspecified whether descended or undescended (principal); J34.1 Cyst and mucocele of nose and nasal sinus
CPT/HCPCS: 70553; 72156; 72157; A9575; A4216

== ENCOUNTER → 2022-03-13 | Outpatient (CLI) | payer OTHER, SELFPAY ==
--- NOTE | 2022-03-13 10:51 | RAD_ITS ---
STUDY: X-RAY - LUMBOSACRAL SPINE REASON FOR EXAM: Male, 31 years old. BACK PAIN TECHNIQUE: 7 view(s) of the lumbosacral spine were obtained. COMPARISON: None FINDINGS: Vertebral bodies are normal in height. No definite fracture demonstrated. No subluxation. No subluxation with flexion or extension. No paravertebral soft tissue mass identified. RAD/L/S Spine Bending Flex/Ext IMPRESSION: No acute findings. Electronically Signed: Lluvia Alvarez MD at 7:53 EDT ,
--- NOTE | 2022-03-13 10:51 | RAD_ITS ---
STUDY: X-RAY - PELVIS REASON FOR EXAM: Male, 31 years old. BACK PAIN TECHNIQUE: One view of the pelvis was obtained. COMPARISON: None. FINDINGS: No fracture demonstrated. The femoral heads are normal in contour. No dislocation at the hips. RAD/Pelvis 1 or 2 Views IMPRESSION: Unremarkable single view pelvis. Electronically Signed: Lluvia Alvarez MD at 7:49 EDT ,
== END | disposition home or self-care (01) ==
LOC: RAD 10:48
PROVIDERS: Referring Provider Nurse Practitioner Family; Visit Provider Nurse Practitioner Family
DX: M54.9 Dorsalgia, unspecified (principal)
CPT/HCPCS: 72120; 72170

== ENCOUNTER → 2022-04-01 | Outpatient (CLI) | payer OTHER, SELFPAY ==
[2022-04-01 15:21] LABS: Thyroid Stim Hormone (TSH) 0.21 uIU/mL (0.358-3.74)
[2022-04-05 05:07] LABS: Free Kappa Light Chains 23.5 mg/L (3.3-19.4); Free Lambda Light Chains 20.4 mg/L (5.7-26.3)
[2022-04-07 14:17] LABS: Vitamin B1, Thiamine 144.7 nmol/L (66.5-200.0)
== END | disposition home or self-care (01) ==
PROVIDERS: Referring Provider Psychiatry & Neurology Neurology; Visit Provider Psychiatry & Neurology Neurology
DX: G62.9 Polyneuropathy, unspecified (principal)
CPT/HCPCS: 36415; 83883; 84425; 84443

== ENCOUNTER → 2022-06-11 | Outpatient (CLI) | payer OTHER, SELFPAY ==
--- NOTE | 2022-06-11 08:18 | CT_ITS ---
STUDY: CT CHEST, ABDOMEN T PELVIS WITH CONTRAST REASON FOR EXAM: Male, 31 years old. MONITOR TESTICULAR CA RADIATION DOSAGE (If Supplied By Facility): CTDIvol = ( 10.54 ) mGy, DLP = ( 1575.87 ) mGycm TECHNIQUE: Transaxial imaging was performed following intravenous administration of IV 100mL Isovue-300. Multiplanar coronal and sagittal images were reformatted. Individualized dose optimization techniques were used for this CT. COMPARISON: Comparison is made with prior study dated 12/20/2021. FINDINGS: CHEST A right-sided portacatheter is seen with tip in the superior vena cava. Stable small benign-appearing bilateral axillary lymph nodes. Stable 3 mm pleural-based nodule in the superior segment of the right lower lobe as seen on axial image #48. Stable 7 mm noncalcified nodule in the right lower lobe as seen on axial image #65. There is no demonstrated pleural abnormality. Normal heart and pericardium. Normal mediastinum. Normal hilar regions. Normal unenhanced pulmonary arteries. Normal aorta arch and descending thoracic aorta. Normal osseous structures. There is no demonstrated abnormality of the visualized upper abdomen. ABDOMEN The visualized lung bases are unremarkable. The visualized portions of the heart are within normal limits. Normal liver. Normal gallbladder and extrahepatic biliary system. Normal spleen. Normal pancreas. Normal bilateral adrenal glands. Normal right kidney. Normal left kidney. Normal visualized stomach. Normal small intestine. Normal colon. The appendix is visualized and appears normal. Normal abdominal aorta. Normal inferior vena cava. There is borderline retroperitoneal lymphadenopathy with enlarged nodes no greater than 10mm in the short axis diameter. Normal abdominal wall. Normal osseous structures. PELVIS Normal urinary bladder. Small left hydrocele. Normal visualized small intestine. Normal visualized colon. There is no pelvic fluid. There is no pelvic lymphadenopathy or mass lesion. Normal visualized pelvic arteries. Normal abdominal wall. Normal osseous structures. CT/CT Chest, Abd, Pel w/Contrast IMPRESSION: Stable examination. Electronically Signed: Zhang Ardon MD at 10:44 EST ,
== END | disposition home or self-care (01) ==
PROVIDERS: Referring Provider Internal Medicine Medical Oncology; Visit Provider Internal Medicine Medical Oncology
DX: C62.12 Malignant neoplasm of descended left testis (principal)
CPT/HCPCS: 71260; 74177; Q9967; A4216

== ENCOUNTER → 2022-08-15 | Outpatient (CLI) | payer OTHER, SELFPAY ==
[2022-08-15 10:54] LABS: Free T3 3.3 pg/mL (2.18-3.98); T4 Free Direct 0.92 ng/dL (0.76-1.46); Thyroid Stim Hormone (TSH) 0.53 uIU/mL (0.358-3.74)
[2022-08-19 14:08] LABS: Alpha-1-Globulins 0.2 g/dL (0.0-0.4); Alpha-2-Globulins 0.7 g/dL (0.4-1.0); Gamma Globulin 0.8 g/dL (0.4-1.8); Immunoglobulin A 269 mg/dL (90-386); Immunoglobulin G 801 mg/dL (603-1613); Immunoglobulin M 88 mg/dL (20-172); PROEL- TOTAL PROTEIN 6.9 g/dL (6.0-8.5)
[2022-08-19 14:40] LABS: Immunofixation Urine Comment: (.)
== END | disposition home or self-care (01) ==
LOC: MTLAB 08:47
PROVIDERS: Referring Provider Psychiatry & Neurology Neurology; Visit Provider Psychiatry & Neurology Neurology
DX: G62.9 Polyneuropathy, unspecified (principal)
CPT/HCPCS: 36415; 82784; 84165; 84439; 84443; 84481; 86334; 86335

== ENCOUNTER → 2022-10-14 | Outpatient (CLI) | payer OTHER, SELFPAY ==
--- NOTE | 2022-10-14 15:43 | NEURO_ITS ---
NCS and/or EMG Patient Report Ordering Doctor: Rah Lockhart DATE OF SERVICE: 10/14/22 Indication: Bilateral lower extremity numbness and tingling. Associated intolerance to cold environments. Symptoms are most prominent on the soles of the feet. The onset was October 2021 and seemed temporally related to receiving chemotherapy. Findings: Nerve conduction studies were performed in the bilateral lower extremities. The right peroneal motor study recording the extensor digitorum brevis showed a normal amplitude, normal distal latency and normal conduction velocity. Mild focal slowing was present across the fibular neck. The right tibial motor study recording the abductor hallucis brevis showed a normal amplitude, normal distal latency and normal conduction velocity. The right sural sensory response showed a normal amplitude and mildly slowed conduction velocity. The right superficial peroneal sensory response showed a normal amplitude and mildly slowed conduction velocity. The right radial sensory response showed a normal amplitude and conduction velocity. The left peroneal motor study recording the extensor digitorum brevis showed a normal amplitude, normal distal latency and normal conduction velocity. No conduction block or focal slowing was present across the fibular neck. The left tibial motor study recording the abductor hallucis brevis showed a normal amplitude, normal distal latency and normal conduction velocity. The left sural sensory response showed a normal amplitude and mildly slowed conduction velocity. The left superficial peroneal sensory response showed a normal amplitude and mildly slowed conduction velocity. Needle EMG of the right lower extremity muscles was performed. No denervation was present in any muscle. Motor unit morphology, activation, and recruitment patterns were largely normal. Activation was reduced in the vastus medialis. Impression: This is a borderline study. There is no definitive electrophysiologic evidence of a large fiber peripheral neuropathy. However, the slightly reduced conduction velocities seen in the lower extremity could potentially represent a mild, sensory-predominant, polyneuropathy. Please note: routine nerve conduction studies and needle EMG assess the larger, myelinated motor and sensory fibers. Thus, routine electrodiagnostic studies may be insensitive in detecting a peripheral neuropathy restricted to small fibers alone (i.e., pain, temperature and autonomic fibers). However, most peripheral neuropathies with predominantly small fiber large dysfunction will also involve large fibers to a lesser extent, and will demonstrate abnormalities on electrodiagnostic studies. Thus, clinical correlation is required in the interpretation of this negative electrodiagnostic study if an isolated small fiber neuropathy is considered. 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 This finding should be interpreted with caution as it would not be expected to produce the patient's current symptomatology. Abelino Stephenson D.O. Multi Select Codes Neurology Neurology Interp Codes: 65678-64 [facility] [place] tst done w/nerv tst andrade (interp) and 86136-42 Nr cndj test 9-10 studies (interp)
== END | disposition home or self-care (01) ==
LOC: PSN 13:46
PROVIDERS: Visit Provider Psychiatry & Neurology Neurology
DX: G62.9 Polyneuropathy, unspecified (principal)
CPT/HCPCS: 95885; 95911

== ENCOUNTER → 2023-11-05 | Outpatient (CLI) | payer OTHER, SELFPAY ==
[2023-11-05 16:29] LABS: Absolute Lymphocyte Count 1.82 X10^3/uL (0.83-4.51); Absolute Neutrophil Count 4.2 X10^3/uL (2.0-7.7); Basophil# 0.03 X10^3/uL; Basophil% 0.4 % (0-1); Eosinophil# 0.21 X10^3/uL; Eosinophils% 3.1 % (0-5); Hematocrit 44.5 % (40-54); Hemoglobin 15.5 g/dL (13.0-16.5); Lymphocyte # 1.82 X10^3/ul (0.83-4.51); Lymphocyte % 27.1 % (19-41); Mean Corp Hgb Conc 34.8 g/dL (32-36); Mean Corpuscular Hgb 30.3 pg (27.0-32.0); Mean Corpuscular Volume 86.9 fL (80-94); Mean Platelet Vol. 8.9 fl (6.2-12.0); Monocyte# 0.42 X10^3/uL; Monocyte% 6.3 % (0-10); NRBC Flagged by Analyzer 0 % (0-5); Neutrophil # 4.22 X10^3/uL (2.7-7.7); Neutrophil % 62.8 % (47-70); Platelet Count 386 K/mm3 (150-450); RBC Distribution Width CV 12.3 % (11.6-14.6); RBC Distribution Width SD 38.7 fl (35.1-43.9); Red Blood Count 5.12 M/mm3 (4.6-6.2); White Blood Count 6.7 K/mm3 (4.4-11.0)
[2023-11-05 16:58] LABS: AST(SGOT) 29 U/L (15-37); Alanine Aminotransfer ALT/SGPT 44 U/L (16-61); Albumin, Serum 3.9 g/dL (3.2-5.0); Alkaline Phosphatase 108 U/L (45-117); Anion Gap 6 (5-15); BUN 18 mg/dL (7-18); BUN/Creat Ratio 13.5 RATIO (10-20); Calcium,Total 9.3 mg/dL (8.5-10.1); Chloride 102 mmol/L (98-107); Creatinine, Serum 1.33 mg/dL (0.70-1.30); EST Glomerular Filtration Rate 66 mL/min (>60); Est Glom Filt Rate - Afr Amer 80 mL/min (>60); Globulin 3.9 g/dL (2.2-4.2); Glucose 94 mg/dL (74-106); LDH 183 U/L (87-241); Potassium 3.4 mmol/L (3.5-5.1); Protein, Total 7.8 g/dL (6.4-8.2); Sodium Level 139 mmol/L (136-145)
[2023-11-07 04:08] LABS: HCG BETA-SUBUNIT QUANT. < 1 mIU/mL (0-3)
== END | disposition home or self-care (01) ==
LOC: LAB 15:05
PROVIDERS: Referring Provider Internal Medicine Medical Oncology; Visit Provider Internal Medicine Medical Oncology
DX: C62.90 Malignant neoplasm of unspecified testis, unspecified whether descended or undescended (principal)
CPT/HCPCS: 80053; 82105; 83615; 84702; 85025

== ENCOUNTER → 2023-11-21 | Outpatient (CLI) | payer OTHER, SELFPAY ==
--- NOTE | 2023-11-21 19:07 | CT_ITS ---
STUDY: CT ABDOMEN AND PELVIS WITH CONTRAST REASON FOR EXAM: Male, 33 years old. PAIN RADIATION DOSAGE (If Supplied By Facility): CTDIvol = ( 9.11 ) mGy, DLP = ( 464.12 ) mGycm TECHNIQUE: Transaxial images were obtained from the dome of the diaphragm to the symphysis pubis with oral contrast. IV 100mL Isovue-370 was administered. Sagittal and coronal images were reconstructed. Individualized dose optimization techniques were used for this CT. COMPARISON: 06/11/2022 FINDINGS: The visualized lung bases are unremarkable. The visualized portions of the heart are within normal limits. Normal liver. Normal gallbladder and extrahepatic biliary system. Normal spleen. Normal pancreas. Normal bilateral adrenal glands. Normal right kidney. Normal left kidney. Normal visualized stomach. Normal small intestine. There are multiple colonic diverticula consistent with diverticulosis. There is non-visualization of the appendix. Normal abdominal aorta. Normal inferior vena cava. Normal retroperitoneum. Normal urinary bladder. Normal abdominal wall. Normal osseous structures. CT/Abdomen/Pelvis WITH Contrast IMPRESSION: Normal enhanced CT of the abdomen and pelvis. Electronically Signed: Devante Fernandez MD at 22:42 EDT ,
== END | disposition home or self-care (01) ==
LOC: CT 19:01
PROVIDERS: Visit Provider Internal Medicine Medical Oncology
DX: R10.9 Unspecified abdominal pain (principal); Z85.47 Personal history of malignant neoplasm of testis
CPT/HCPCS: 74177; Q9967

== ENCOUNTER → 2023-12-04 | Outpatient (CLI) | payer OTHER, SELFPAY ==
[2023-12-08 15:08] LABS: Albumin 3.9 g/dL (2.9-4.4); Alpha-1-Globulins 0.2 g/dL (0.0-0.4); Alpha-2-Globulins 0.7 g/dL (0.4-1.0); Free Kappa Light Chains 18.1 mg/L (3.3-19.4); Free Lambda Light Chains 18.3 mg/L (5.7-26.3); Gamma Globulin 0.8 g/dL (0.4-1.8); Immunoglobulin A 277 mg/dL (90-386); Immunoglobulin G 899 mg/dL (603-1613); Immunoglobulin M 90 mg/dL (20-172); PROEL- TOTAL PROTEIN 6.7 g/dL (6.0-8.5)
== END | disposition home or self-care (01) ==
LOC: MTLAB 08:38
PROVIDERS: Referring Provider Psychiatry & Neurology Neurology; Visit Provider Psychiatry & Neurology Neurology
DX: G62.9 Polyneuropathy, unspecified (principal)
CPT/HCPCS: 36415; 82784; 83883; 84165; 86334; 86335

== ENCOUNTER 2024-02-13 13:27 | Emergency (ER) | payer OTHER, SELFPAY ==
[2024-02-13 13:28] VITALS: BP 166/100; PULSE 138; RESP 22; TEMP 36.4; O2SAT 100; BMI 22.9
--- NOTE | 2024-02-13 13:58 | RAD_ITS ---
STUDY: X-RAY CHEST REASON FOR EXAM: Male, 33 years old. cough TECHNIQUE: PA and lateral views of the chest. COMPARISON: Comparison is made with prior study dated September 17, 2021 and September 03, 2021. FINDINGS: EKG electrodes are seen. The previously seen right-sided vianney catheter is been removed. The lungs are clear and expanded. There is no demonstrated pleural abnormality. Normal size heart. Normal mediastinum and christina. Normal visualized pulmonary arteries. Normal visualized aortic arch and descending thoracic aorta. Normal visualized thoracic spine. Normal visualized ribs, clavicles, and shoulders. There is no demonstrated abnormality of the visualized soft tissue structures of the upper abdomen. RAD/Chest PA and Lateral IMPRESSION: Normal x-ray examination of the chest. Electronically Signed: Zhang Ardon MD at 14:40 EDT ,
--- NOTE | 2024-02-13 13:59 | EKG12_ITS ---
Test Reason : CHEST PAIN Blood Pressure : / mmHG Vent. Rate : 119 BPM Atrial Rate : 119 BPM P-R Int : 138 ms QRS Dur : 086 ms QT Int : 324 ms P-R-T Axes : 076 085 063 degrees QTc Int : 455 ms Sinus tachycardia Otherwise normal ECG Confirmed by DC LOPEZ, JUAN ([id number]), map editor ADELITA ROSADO ([id number]) on 02/18/2024 10:49:30 A M Referred By: Confirmed By:TONY IRWIN MD
--- NOTE | 2024-02-13 14:14 | EX.ED.DYSGE1 ---
HPI <JIAN Ferris - Last Filed: 02/13/24 15:27> History of Present Illness Chief Complaint: Chest Pain Narrative Narrative: Patient is a 33-year-old male with history of polyneuropathy, who presents to the emergency department for left shoulder blade pain, dizziness, left arm pain and chest pain. Patient states for the last 2 to 3 weeks, has been having pain to his left upper back hide his left shoulder blade. Today, the patient went to his chiropractor, then to urgent care who referred him here. Pay states the pain when he gets up and moving is severe, he is also having dizziness intermittent chest pain and shortness of breath. Patient denies any fever or chills. Denies any recent travel, denies any history of blood clots to the legs or lungs. PFSH <JIAN Ferris - Last Filed: 02/13/24 15:27> PFSH Medical History Alcohol use Asthma Back pain Back pain Cancer Cancer-related pain Chipped tooth CINV (chemotherapy-induced nausea and vomiting) Easy bruising Encounter for education Eustachian salpingitis Fever of unknown origin Former smoker Frequent falls High cholesterol History of pain when walking Hx of perforation of tympanic membrane Injury of head and neck Lung nodules Mass of left testicle Testicle cancer Testicular cancer Testicular pain Home Medications ?Medication ?Instructions ?Recorded ?Last Taken ?Type multivitamin 1 tab PO DAILY multivitamin 07/16/21 Unknown History ibuprofen 800 mg tablet 800 mg PO BID PRN Pain 07/31/21 Unknown History amitriptyline 150 mg tablet 150 mg PO QHS #30 tabs 12/04/23 Unknown Rx cyclobenzaprine 10 mg tablet 10 mg PO TID #15 tabs 02/13/24 Unknown Rx Allergy/AdvReac Type Severity Reaction Status Date / Time No Known Allergies Allergy Verified 11/25/23 15:26 Family History Grandfather Testicular cancer great grandfather Diabetes Father Diabetes Asthma Grandfather Alzheimer disease great grandfather Surgical History History of orchiectomy History of umbilical hernia repair Hx of LASIK Hx of myringotomy S/P radical unilateral orchiectomy Social History Smoking Status: Former smoker second hand exposure: No alcohol intake: current details: occasional wine (maybe once a month substance use type: does not use caffeine: Yes Type: carbonated beverages Number of servings: 2 aleena/restoration: Restorationism seatbelt use: sometimes ROS <JIAN Ferrsi - Last Filed: 02/13/24 15:27> ROS ED ROS Narrative Constitutional: Negative for fever, chills, weight loss, weakness Eyes: Negative for vision loss, vision change, double vision ENT: Negative for any sore throat, ear pain, congestion Cardiovascular: Positive for any chest pain, tightness, palpitations Respiratory: Negative for any cough, sputum production, hemoptysis, dyspnea on exertion, orthopnea. Positive for dyspnea Gastrointestinal: Negative for any abdominal pain, nausea, vomiting, diarrhea, constipation, blood in stool, blood in vomit : Negative for any urinary frequency, dysuria, retention, blood in urine Muscle skeletal: Negative for any neck pain. Positive for left upper back pain Neurological: Negative for any headache, syncope, dizziness Skin: Negative for any rashes, itching, abrasions, lacerations Psychiatric: Negative for any depression, anxiety, stress, suicidal ideation, homicidal ideation Hematologic: Negative for any excessive bruising, easy bleeding EXAM <JIAN Ferris - Last Filed: 02/13/24 15:27> Physical Exam Narrative Exam Narrative: Vital signs reviewed. Patient does appear to be in mild distress secondary to pain to the left upper back, left chest, left arm. Patient is tachycardic, the remainder the vital signs are stable. HEET: Head normocephalic atraumatic, TMs clear bilaterally. Posterior pharynx is clear, moist mucous membranes. Nares clear bilaterally. Neck: Supple with no lymphadenopathy or tenderness. No signs of meningismus. Cardiac: Tachycardic rate, no murmurs gallops or rubs, equal peripheral pulses bilaterally. Respiratory: Lungs clear to auscultation bilaterally. No chest tenderness. Abdomen: Soft, nontender, nondistended. No abdominal bruit or pulsatile masses. No hepatosplenomegaly Extremities: No peripheral edema, no signs of gross trauma or deformity. Active full range of motion of all extremities. Neuro: Cranial nerves II through XII intact, no focal neurological deficits. Skin: Clean dry and intact with no rash, purpura, petechiae, vesicles or pustules. Backs/flank: No CVA tenderness, no midline spinal tenderness, no deformity. Patient did have some pain on palpation to the left trapezial muscle just above the left scapular area. Psych: Normal mood and affect. No SI, HI or acute psychosis. Const Vital Signs: 02/13/24 13:28 02/13/24 13:44 02/13/24 14:27 Temperature 97.6 F L Temperature Source Temporal Pulse Rate 138 H 95 Respiratory Rate 22 H 21 H Respiratory Effort Normal Respiratory Pattern Normal Blood Pressure 166/100 H 137/93 H Blood Pressure Mean 122 107 Pulse Ox 100 100 Oxygen Delivery Method Room Air Room Air 02/13/24 15:00 02/13/24 15:31 Temperature 98.1 F Temperature Source Pulse Rate 76 72 Respiratory Rate 18 15 Respiratory Effort Respiratory Pattern Blood Pressure 147/88 H 128/79 H Blood Pressure Mean 107 95 Pulse Ox 97 97 Oxygen Delivery Method Room Air Positive well nourished and well developed General Appearance ED: well developed <Dr. Lavell Odom DO - Last Filed: 02/13/24 19:18> Physical Exam Const Vital Signs: 02/13/24 13:28 02/13/24 13:44 02/13/24 14:27 Temperature 97.6 F L Temperature Source Temporal Pulse Rate 138 H 95 Respiratory Rate 22 H 21 H Respiratory Effort Normal Respiratory Pattern Normal Blood Pressure 166/100 H 137/93 H Blood Pressure Mean 122 107 Pulse Ox 100 100 Oxygen Delivery Method Room Air Room Air 02/13/24 15:00 02/13/24 15:31 Temperature 98.1 F Temperature Source Pulse Rate 76 72 Respiratory Rate 18 15 Respiratory Effort Respiratory Pattern Blood Pressure 147/88 H 128/79 H Blood Pressure Mean 107 95 Pulse Ox 97 97 Oxygen Delivery Method Room Air MDM <JIAN Ferris - Last Filed: 02/13/24 15:27> MDM Lab Data Labs: Laboratory Results - last 24 hr 02/13/24 13:50 WBC 7.8 RBC 5.04 Hgb 15.2 Hct 42.2 MCV 83.7 MCH 30.2 MCHC 36.0 RDW Std Deviation 35.8 RDW Coeff of Phil 11.9 Plt Count 351 MPV 8.5 Immature Gran % (Auto) 0.400 Neut % (Auto) 64.8 Lymph % (Auto) 25.8 Hinds % (Auto) 7.2 Eos % (Auto) 1.4 Baso % (Auto) 0.4 Absolute Neuts (auto) 5.1 Absolute Lymphs (auto) 2.01 Nucleated RBC % 0 D-Dimer Quant (PE/DVT) < 0.27 L Sodium 136 Potassium 3.0 L Chloride 100 Carbon Dioxide 26.0 Anion Gap 10 BUN 19 H Creatinine 1.52 H Estim Creat Clear Calc 70.91 Est GFR (MDRD) Af Amer 68 Est GFR (MDRD) Non-Af 56 L BUN/Creatinine Ratio 12.5 Glucose 126 H Calcium 9.3 Total Bilirubin 0.30 AST 22 ALT 36 Alkaline Phosphatase 111 Troponin I High Sens < 3 L Total Protein 7.6 Albumin 4.2 Globulin 3.4 Albumin/Globulin Ratio 1.2 Lipase 22 Radiography Diagnostic Testing: Clinical Impression(s) from Imaging Studies Chest X-Ray 02/13/24 13:58 IMPRESSION: Normal x-ray examination of the chest. Electronically Signed: Zhang Ardon MD at 14:40 EDT , Treatment and Re-Evaluation :: Differential diagnosis includes however is not limited to: Pulmonary embolus, muscle spasm, ACS, CO, community-acquired pneumonia, acute cholecystitis, muscle strain Patient does appear to be in slight discomfort secondary to pain in the left upper scapular area. This is been ongoing for multiple weeks. Patient appears nontoxic. Patient is tachycardic however the remainder of the vitals are stable. Patient will receive a full cardiac workup, including 1 troponin, D-dimer, CBC CMP lipase. Chest x-ray will be obtained. Patient received IV fluids, Zofran, Toradol. Patient will be reevaluated. Two-view chest x-ray to rule out any pneumonia. All radiologic examinations were read, reviewed by the emergency department attending. From these reads, a plan of care will be put in place. Patient's EKG was unremarkable, negative for any ACS or CO. Patient's chest x-ray was negative for any acute process. This was interpreted by the ER physician. CBC was unremarkable, patient's D-dimer was less than 0.27 which is negative. Potassium slightly low at 3.0, creatinine was 1.52, I did speak with the patient, he does follow-up with oncologist, and his PCP are aware of the elevated creatinine. Patient's troponin was negative. Lipase was negative. Patient did have improvement with IV fluids, Zofran as well as Toradol. I do believe that this is mostly a muscle skeletal strain. There is no evidence of any ACS, CO, PE, community-acquired pneumonia, acute cholecystitis or pancreatitis. Patient will continue to follow-up outpatient. Instructed return for any worsening symptoms. Patient be given anti-inflammatories as well as muscle relaxers for home. <Dr. Lavell Odom, DO - Last Filed: 02/13/24 19:18> [facility] Narrative Medical decision making narrative: I have personally performed a face to face assessment of the patient and have reviewed the ABDI Note. I performed a substantive portion of the visit including all aspects of the following. My hanson findings include: History: Patient presents with back pain and chest pain that has been constant for the past 3 or 4 weeks. Patient states the pain became worse today. Patient states he went to urgent care. Patient states that at that time his left arm was discolored. Patient was then referred to the emergency department. Patient states that the color in his left arm has improved since arriving to the emergency department. Patient states the pain is under his left scapula. Patient describes the pain as sharp. Patient states it is worse with certain movements. Patient states it is better with laying down. Patient does admit to some lightheadedness and dizziness. Patient has a history of testicular cancer with that metastasized to the lymph nodes and to his left lung. Exam: Initial vital signs shows a blood pressure 166/108 tachycardia of 138 and mild tachypnea of 22. Patient is afebrile. Patient is in no acute distress. Oral mucosa is pink and moist. Neck is supple. Trachea is midline. No JVD. Heart was regular and tachycardic. Lungs are clear and equal bilaterally. There is good respiratory effort noted. Abdomen is soft. Bowel sounds are normal. There is no tenderness. Cranial nerves II through XII are intact. There are no focal motor or sensory deficits noted. There is no edema of the upper or lower extremities. Radial and pedal pulses are equal bilaterally. Medical Decision Making: Differential diagnosis close pulmonary embolism, cardiac dysrhythmia, cardiac ischemia, electrolyte abnormality, infection, gastroesophageal reflux disease, pancreatitis, and viral illness. CBC will be obtained to assess for leukocytosis and anemia. Comprehensive metabolic profile will be obtained to assess for hepatic function, renal function, electrolyte abnormality. Lipase will be obtained to assess for pancreatitis. D-dimer will be obtained to assess for pulmonary embolism. High-sensitivity troponin will be obtained to assess for cardiac ischemia. Chest x-ray will be obtained to assess for pneumonia and pneumothorax. Patient was given IV fluids, Toradol, and Zofran. EKG was obtained. On my independent interpretation, it shows sinus tachycardia with rate of 119. ID interval was normal at 138 ms. QRS interval was normal at 86 ms. QTc interval was normal at 455 ms. [place] was normal. There are no acute ST or T wave changes noted. PA and lateral chest x-ray was obtained. There are 2 views. On my independent interpretation, lung cantrell are clear. There is normal cardiac silhouette. Bony thorax is normal. There is no acute process noted. Radiologist also interpreted the x-ray and agrees. CBC was reviewed with the antibiotics abnormalities. Comprehensive metabolic profile was reviewed. BUN was 19 and creatinine was slightly elevated at 1.52. High-sensitivity troponin was reviewed and was less than 3. Lipase was reviewed and was normal at 22. D-dimer was reviewed and was normal at less than 0.27. Patient was still no better on reevaluation. Patient was advised of his findings. Patient was instructed to drink plenty of fluids. Patient was instructed to follow-up with his primary care physician in 3 to 5 days. Patient understood and was agreeable with the plan. All questions were answered. Lab Data Labs: Laboratory Results - last 24 hr 02/13/24 13:50 WBC 7.8 RBC 5.04 Hgb 15.2 Hct 42.2 MCV 83.7 MCH 30.2 MCHC 36.0 RDW Std Deviation 35.8 RDW Coeff of Phil 11.9 Plt Count 351 MPV 8.5 Immature Gran % (Auto) 0.400 Neut % (Auto) 64.8 Lymph % (Auto) 25.8 Hinds % (Auto) 7.2 Eos % (Auto) 1.4 Baso % (Auto) 0.4 Absolute Neuts (auto) 5.1 Absolute Lymphs (auto) 2.01 Nucleated RBC % 0 D-Dimer Quant (PE/DVT) < 0.27 L Sodium 136 Potassium 3.0 L Chloride 100 Carbon Dioxide 26.0 Anion Gap 10 BUN 19 H Creatinine 1.52 H Estim Creat Clear Calc 70.91 Est GFR (MDRD) Af Amer 68 Est GFR (MDRD) Non-Af 56 L BUN/Creatinine Ratio 12.5 Glucose 126 H Calcium 9.3 Total Bilirubin 0.30 AST 22 ALT 36 Alkaline Phosphatase 111 Troponin I High Sens < 3 L Total Protein 7.6 Albumin 4.2 Globulin 3.4 Albumin/Globulin Ratio 1.2 Lipase 22 Radiography Chest X-Ray - ED: 2 View, Read by ED Physician, Read by Radiologist and No Acute Disease Diagnostic Testing: Clinical Impression(s) from Imaging Studies Chest X-Ray 02/13/24 13:58 IMPRESSION: Normal x-ray examination of the chest. Electronically Signed: Zhang Ardon MD at 14:40 EDT , EKG Initial EKG: Attestation: I personally reviewed and interpreted this EKG as follows: Interpretation: No Acute Injury Pattern and Sinus Tachycardia (119) Comments: EKG was obtained. On my independent interpretation, it showed a sinus tachycardia with a rate of 119 but. ID interval, QRS interval, and QTc intervals were all normal. [place] was normal. There are no acute ST or T wave changes. Discharge Plan Triage Chief Complaint: Chest Pain ED Midlevel Provider: Shayne Truong ED Provider: Lavell Odom Dx/Rx/DC Orders Clinical Impression: Acute thoracic myofascial strain, Muscle spasm, CKD (chronic kidney disease) Instructions: ED Back Spasm, No Trauma, ED Back Sprain/Strain, ED Thoracic Spine Strain Prescriptions: New cyclobenzaprine 10 mg tablet 10 mg PO TID Qty: 15 0RF No Action multivitamin Tablet 1 tab PO DAILY ibuprofen 800 mg tablet 800 mg PO BID PRN (Reason: Pain) amitriptyline 150 mg tablet 150 mg PO QHS Qty: 30 11RF Primary Care Provider: Care Physician,No Primary Referrals: Care Physician,No Primary [Primary Care Provider] - Activity Restrictions/Additional Instructions: Continue doing generalized stretching, he may see the chiropractor. Secondary to your kidney disease, I do not believe that anti-inflammatory such as NSAIDs are a good idea secondary to them going through your kidneys. You may take Tylenol 1 g every 8 hours. You may also use the muscle relaxers. Continue to ice heat and perform gentle light stretching. Print Language: Tamazight Disposition Disposition: Home, Self Care Discharge Date/Time: 02/13/24 15:31
[2024-02-13 14:16] LABS: Absolute Lymphocyte Count 2.01 X10^3/uL (0.83-4.51); Absolute Neutrophil Count 5.1 X10^3/uL (2.0-7.7); Basophil# 0.03 X10^3/uL; Basophil% 0.4 % (0-1); Eosinophil# 0.11 X10^3/uL; Eosinophils% 1.4 % (0-5); Hematocrit 42.2 % (40-54); Hemoglobin 15.2 g/dL (13.0-16.5); Lymphocyte # 2.01 X10^3/ul (0.83-4.51); Lymphocyte % 25.8 % (19-41); Mean Corpuscular Hgb 30.2 pg (27.0-32.0); Mean Corpuscular Volume 83.7 fL (80-94); Mean Platelet Vol. 8.5 fl (6.2-12.0); Monocyte# 0.56 X10^3/uL; Monocyte% 7.2 % (0-10); NRBC Flagged by Analyzer 0 % (0-5); Neutrophil # 5.06 X10^3/uL (2.7-7.7); Neutrophil % 64.8 % (47-70); Platelet Count 351 K/mm3 (150-450); RBC Distribution Width CV 11.9 % (11.6-14.6); RBC Distribution Width SD 35.8 fl (35.1-43.9); Red Blood Count 5.04 M/mm3 (4.6-6.2); White Blood Count 7.8 K/mm3 (4.4-11.0)
[2024-02-13 14:27] VITALS: BP 137/93; PULSE 95; RESP 21; O2SAT 100
[2024-02-13 14:36] LABS: ALB/GLOB Ratio 1.2 RATIO (0.9-2.4); AST(SGOT) 22 U/L (15-37); Alanine Aminotransfer ALT/SGPT 36 U/L (16-61); Albumin, Serum 4.2 g/dL (3.2-5.0); Alkaline Phosphatase 111 U/L (45-117); Anion Gap 10 (5-15); BUN 19 mg/dL (7-18); BUN/Creat Ratio 12.5 RATIO (10-20); Calcium,Total 9.3 mg/dL (8.5-10.1); Chloride 100 mmol/L (98-107); Creatinine, Serum 1.52 mg/dL (0.70-1.30); D-Dimer Quantitative (DVT/PE) < 0.27 FEU/ug/m (0.27-0.49); EST Glomerular Filtration Rate 56 mL/min (>60); Est Glom Filt Rate - Afr Amer 68 mL/min (>60); Estimated Creatinine Clearance 70.91 ml/min; Globulin 3.4 g/dL (2.2-4.2); Glucose 126 mg/dL (74-106); Lipase 22 U/L (13-75); Protein, Total 7.6 g/dL (6.4-8.2); Sodium Level 136 mmol/L (136-145); Troponin-I HS < 3 pg/mL (3.0-78.0)
[2024-02-13] MEDS: Ketorolac 15 MG/ML Vial IV (14:45)
[2024-02-13] MEDS: Ondansetron 4 MG/2 ML Vial IV (14:45)
[2024-02-13] MEDS: 0.9% Normal Saline (1000mL) 1,000 ML 999 ML IV (14:45)
[2024-02-13 15:00] VITALS: BP 147/88; PULSE 76; RESP 18; O2SAT 97
[2024-02-13 15:31] VITALS: BP 128/79; PULSE 72; RESP 15; TEMP 36.7; O2SAT 97
== END 2024-02-13 15:31 | disposition home or self-care (01) ==
PROVIDERS: Nurse Practitioner; Emergency Provider Emergency Medicine; Visit Provider Emergency Medicine
DX: S29.012A Strain of muscle and tendon of back wall of thorax, initial encounter (principal); C77.9 Secondary and unspecified malignant neoplasm of lymph node, unspecified; M62.838 Other muscle spasm; X58.XXXA Exposure to other specified factors, initial encounter; N18.9 Chronic kidney disease, unspecified; E78.00 Pure hypercholesterolemia, unspecified; M79.602 Pain in left arm; R42 Dizziness and giddiness; M25.512 Pain in left shoulder; E87.6 Hypokalemia; R06.02 Shortness of breath; Z79.899 Other long term (current) drug therapy; Z87.891 Personal history of nicotine dependence
CPT/HCPCS: 71046; 80053; 83690; 84484; 85025; 85379; 93005; 96361; 96374; 96375; 99282; J7030; A4216; J2405

== ENCOUNTER 2024-10-28 13:35 | Emergency (ER) | payer OTHER, SELFPAY ==
[2024-10-28 13:36] VITALS: BP 127/83; PULSE 115; RESP 16; TEMP 36.6; O2SAT 98; BMI 24.6
[2024-10-28 13:58] LABS: Bacteria 0 SEEN /hpf (None Seen); Mucous, Urine 0 SEEN /hpf (<or=2+); Squamous Epithelial Cells - UA 0 SEEN /hpf (0-5); White Blood Cells 0 SEEN /hpf (0-5)
[2024-10-28 14:02] LABS: Absolute Lymphocyte Count 1.88 X10^3/uL (0.83-4.51); Absolute Neutrophil Count 6.4 X10^3/uL (2.0-7.7); Basophil# 0.05 X10^3/uL; Basophil% 0.5 % (0-1); Eosinophil# 0.13 X10^3/uL; Eosinophils% 1.4 % (0-5); Hematocrit 44.1 % (40-54); Hemoglobin 15.9 g/dL (13.0-16.5); Lymphocyte # 1.88 X10^3/ul (0.83-4.51); Lymphocyte % 20.7 % (19-41); Mean Corp Hgb Conc 36.1 g/dL (32-36); Mean Corpuscular Hgb 30.7 pg (27.0-32.0); Mean Corpuscular Volume 85.1 fL (80-94); Mean Platelet Vol. 8.3 fl (6.2-12.0); Monocyte# 0.65 X10^3/uL; Monocyte% 7.1 % (0-10); NRBC Flagged by Analyzer 0 % (0-5); Neutrophil # 6.35 X10^3/uL (2.7-7.7); Neutrophil % 69.9 % (47-70); Platelet Count 358 K/mm3 (150-450); RBC Distribution Width CV 12.2 % (11.6-14.6); RBC Distribution Width SD 37.9 fl (35.1-43.9); Red Blood Count 5.18 M/mm3 (4.6-6.2); White Blood Count 9.1 K/mm3 (4.4-11.0)
[2024-10-28 14:04] LABS: Color, Urine Yellow (Yellow); Glucose, Dipstick Normal (Normal); Ketone-Dipstick Negative (Negative); Leukocyte Esterase-Dipstick Negative /ul (Negative); Nitrite-Dipstick Negative (Negative); Occult Blood-Urine Negative /ul (Negative); Protein-Dipstick 15 mg/dl (Negative); Urine Bilirubin Dipstick Negative (Negative); Urine Clarity Clear (Clear); Urine Urobilinogen Normal (Normal)
[2024-10-28 14:11] LABS: Red Blood Cells-Urine 0 SEEN /hpf (0-5)
--- NOTE | 2024-10-28 14:12 | EX.ED.DYSGE1 ---
HPI History of Present Illness Chief Complaint: Abd Pain PFSH PFS Medical History Polyneuropathy Frequent falls Back pain Fever of unknown origin CINV (chemotherapy-induced nausea and vomiting) Chipped tooth Cancer Alcohol use Easy bruising Back pain Injury of head and neck Former smoker Asthma Lung nodules Hx of perforation of tympanic membrane History of pain when walking Encounter for education Cancer-related pain Testicular cancer Eustachian salpingitis High cholesterol Testicle cancer Testicular pain Mass of left testicle Home Medications ?Medication ?Instructions ?Recorded ?Last Taken ?Type multivitamin 1 tab PO DAILY multivitamin 07/16/21 Unknown History ibuprofen 800 mg tablet 800 mg PO BID PRN Pain 07/31/21 Unknown History cyclobenzaprine 10 mg tablet 10 mg PO TID #15 tabs 02/13/24 Unknown Rx amitriptyline 150 mg tablet 150 mg PO QHS #30 tabs 10/26/24 Unknown Rx Allergy/AdvReac Type Severity Reaction Status Date / Time No Known Allergies Allergy Verified 10/28/24 13:38 Family History Grandfather Testicular cancer great grandfather Diabetes Father Diabetes Asthma Grandfather Alzheimer disease great grandfather Surgical History History of orchiectomy Hx of myringotomy S/P radical unilateral orchiectomy Hx of LASIK History of umbilical hernia repair Social History Smoking Status: Former smoker second hand exposure: No alcohol intake: current details: occasional wine (maybe once a month substance use type: does not use caffeine: Yes Type: carbonated beverages Number of servings: 2 aleena/worship: [employer] seatbelt use: sometimes EXAM Physical Exam Const Vital Signs: 10/28/24 13:36 10/28/24 15:36 Temperature 97.9 F Temperature Source Temporal Pulse Rate 115 H 96 Respiratory Rate 16 17 Blood Pressure 127/83 H 139/86 H Blood Pressure Mean 97 103 Pulse Ox 98 100 Oxygen Delivery Method Room Air Room Air MDM MDM MDM Narrative Medical decision making narrative: HISTORY OF PRESENT ILLNESS: 34-year-old male presents with left lower quad abdominal pain. He also notes associated constipation. Also notes dysuria. He states this began on Friday (10/25/2024). Denies history abdominal surgeries. Denies testicular pain. Denies trouble urinating. Denies blood in his stool. Notes he was constipated on Friday.Since improved and has been experiencing daily bowel movements. Denies fever. Denies vomiting or diarrhea. REVIEW OF SYSTEMS: Pertinent positives: Abdominal pain, constipation Pertinent negatives: Vomiting, diarrhea, fever PHYSICAL EXAM: Nursing triage notes reviewed, Vital signs reviewed Constitutional: please see mdm HENT: MMM Eyes: Pupils equal round and reactive to light, Extraocular muscles intact Neck: No stridor, no JVD, full neck ROM Lungs: Clear to auscultation, No wheezing or rales. No increased work of breathing, no conversational dyspnea, no accessory muscle use, no nasal flaring. No respiratory distress noted Heart: Regular rate and rhythm, No murmurs, No rubs and No gallops, 2+ distal pulses (radial, femoral, posterior tibial) in all extremities Abdomen: Soft, there is no tenderness, rigidity, rebound or guarding, no obvious peritoneal signs, no palpable pulsatile abdominal masses, no auscultated abdominal bruit : No CVAT Extremities: No edema Neuro: No new focal neurological deficits, cranial nerves II through XII intact, 5/5 strength in all present extremities. Intact sensation to light touch in all present extremities, 2+ reflexes bilateral patella tendons. Skin: No rash or lesions noted MEDICAL DECISION MAKING: Chief Complaint: Abdominal pain External records reviewed: Reviewed prior imaging studies: Reviewed CT scan of the abdomen pelvis from November 2023 which showed a normal in hand CT scan abdomen pelvis Factors affecting care: History of testicular cancer, Social determinants of health: denies alcohol use History obtained from others: none Consults: none [facility] Narrative: Patient was initially tachycardic otherwise afebrile and nontoxic-appearing. Exam with left lower quadrant TTP I considered the following differential diagnosis: AAA, small bowel obstruction, abdominal perforation, appendicitis, pancreatitis, hepatobiliary pathology (acute cholecystitis), mesenteric ischemia, pathology (ie nephrolithiasis, pyelonephritis). Triage orders were placed including CBC, CMP, lipase, urinalysis. I added a CT scan abdomen pelvis and gave symptomatic treatment in the form of IV fluids and Toradol ALL IMAGES (IF OBTAINED) HAVE BEEN PERSONALLY REVIEWED AND INTERPRETED BY MYSELF. Urinalysis shows no evidence of urinary inflammation suggestive of UTI CBC without leukocytosis, severe anemia, no thrombocytopenia. CMP without evidence of acute kidney injury, significant electrolyte abnormality, anion gap to suggest end organ hypo-perfusion, no evidence of metabolic acidosis with a normal bicarbonate, no evidence of hepatobiliary obstructive pathology. Lipase is wnl indicating no pancreatic inflammation. Urinalysis shows no evidence of urinary inflammation suggestive of UTI CT scan abdomen pelvis shows epiploic appendagitis is likely cause the patient symptoms. Repeat abdominal exam benign. The likely etiology the patient's symptoms is epiploic appendagitis. Will recommend anti-inflammatories. Close outpatient PCP follow-up and recommend strict return precautions The patient and/or family, caregivers express understanding. The patient and/or family, caregivers agrees with the plan. Shared decision making: I will have a discussion with the patient and or visitors regarding risk/benefits of further testing or admission. They will be made aware of of the risk/benefits inherent in this decision they will be given the opportunity to voice understanding. Total critical care time today provided was at least 0 minutes. This excludes separately billable procedures. Critical care time (if documented) is secondary to the patient having high probability of clinically significant/life threatening deterioration in the patient's condition which required my urgent intervention. Impression: 1. Acute abdominal pain 2. Epiploic appendagitis Dispo: Discharge home This note was generated with Pipewise dictation software. It may contain incorrect words, spelling, and punctuation that were not noted in review of the chart prior to signing. Lab Data Labs: Laboratory Results - last 24 hr 10/28/24 13:48 WBC 9.1 RBC 5.18 Hgb 15.9 Hct 44.1 MCV 85.1 MCH 30.7 MCHC 36.1 H RDW Std Deviation 37.9 RDW Coeff of Phil 12.2 Plt Count 358 MPV 8.3 Immature Gran % (Auto) 0.400 Neut % (Auto) 69.9 Lymph % (Auto) 20.7 [place] % (Auto) 7.1 Eos % (Auto) 1.4 Baso % (Auto) 0.5 Absolute Neuts (auto) 6.4 Absolute Lymphs (auto) 1.88 Nucleated RBC % 0 Sodium 137 Potassium 4.1 Chloride 99 Carbon Dioxide 25.6 Anion Gap 13 BUN 16 Creatinine 1.45 H Estim Creat Clear Calc 74.12 Est GFR (MDRD) Non-Af 65 BUN/Creatinine Ratio 11.2 Glucose 89 Calcium 9.4 Total Bilirubin 0.17 AST 27 ALT 41 Alkaline Phosphatase 125 Total Protein 7.1 Albumin 4.2 Globulin 2.9 Albumin/Globulin Ratio 1.4 Lipase 20 Urine Color Yellow Urine Clarity Clear Urine pH 8.0 Ur Specific [place] 1.010 Urine Protein 15 H Urine Glucose (UA) Normal Urine Ketones Negative Urine Occult Blood Negative Urine Nitrite Negative Urine Bilirubin Negative Urine Urobilinogen Normal Ur Leukocyte Esterase Negative Urine RBC 0 SEEN Urine WBC 0 SEEN Ur Squamous Epith Cells 0 SEEN Urine Bacteria 0 SEEN Urine Mucus 0 SEEN Radiography Diagnostic Testing: Clinical Impression(s) from Imaging Studies Abdomen/Pelvis CT 10/28/24 15:23 IMPRESSION: 1. Focus of pericolonic mesenteric fat stranding in the left lower quadrant without associated colonic findings, most likely due to epiploic appendagitis. 2. Trace left lower quadrant free fluid. Reading Location: [facility] Discharge Plan Triage Chief Complaint: Abd Pain ED Provider: Tim Cottrell Dx/Rx/DC Orders Prescriptions: No Action multivitamin Tablet 1 tab PO DAILY ibuprofen 800 mg tablet 800 mg PO BID PRN (Reason: Pain) amitriptyline 150 mg tablet 150 mg PO QHS Qty: 30 11RF cyclobenzaprine 10 mg tablet 10 mg PO TID Qty: 15 0RF Primary Care Provider: Care Physician,No Primary Referrals: Care Physician,No Primary [Primary Care Provider] - Print Language: Indonesian
[2024-10-28] MEDS: Ketorolac 15 MG/ML Vial IV (15:07)
[2024-10-28] MEDS: 0.9% Normal Saline (1000mL) 1,000 ML 999 ML IV (15:07)
[2024-10-28 15:09] LABS: ALB/GLOB Ratio 1.4 RATIO (0.9-2.4); AST(SGOT) 27 U/L (<=37); Alanine Aminotransfer ALT/SGPT 41 U/L (<=46); Albumin, Serum 4.2 g/dL (3.5-5.0); Alkaline Phosphatase 125 U/L (40-129); Anion Gap 13 (5-15); BUN 16 mg/dL (4-19); BUN/Creat Ratio 11.2 RATIO (10-20); Calcium,Total 9.4 mg/dL (7.6-11.0); Carbon Dioxide 25.6 mmol/L (21.0-32.0); Chloride 99 mmol/L (98-108); Creatinine, Serum 1.45 mg/dL (0.70-1.20); EST Glomerular Filtration Rate 65 (>60); Estimated Creatinine Clearance 74.12 ml/min (50-250); Globulin 2.9 g/dL (2.2-4.2); Glucose 89 mg/dL (70-99); Lipase 20 U/L (13-75); Potassium 4.1 mmol/L (3.3-5.1); Protein, Total 7.1 g/dL (5.9-8.4); Sodium Level 137 mmol/L (133-145); Total Bilirubin 0.17 mg/dL (0.00-1.30)
--- NOTE | 2024-10-28 15:23 | CT_ITS ---
PROCEDURE: ABDOMEN/PELVIS W IV CONT ONLY 10/28/2024 REASON FOR EXAM: LLQ ABDOMINAL PAIN TECHNIQUE: Abdomen and pelvis CT with intravenous contrast. Coronal and Sagittal reconstruction series were provided. One or more dose reduction techniques were used (e.g., Automated exposure control, adjustment of the mA and/or kV according to patient size, use of iterative reconstruction technique. COMPARISON: 11/21/2023 FINDINGS: Lower chest: Unremarkable. Liver: Unremarkable. Biliary/gallbladder: Unremarkable. Pancreas: Unremarkable. Spleen: Unremarkable. Adrenal glands: Unremarkable. Kidneys: Unremarkable. Gastrointestinal/peritoneum: There is a small focus of mesenteric fat stranding in the left lower quadrant pericolonic region. No abnormal colonic findings.There are no dilated loops of bowel.The appendix is unremarkable.There is trace free fluid in the left lower quadrant Vascular: Unremarkable. Lymph nodes: No enlarged lymph nodes by CT size criteria. Pelvic organs: Unremarkable. Bladder: Unremarkable. Bones: Unremarkable. Soft tissues: Unremarkable. CT/Abdomen/Pelvis W IV Cont ONLY IMPRESSION: 1. Focus of pericolonic mesenteric fat stranding in the left lower quadrant wit hout associated colonic findings, most likely due to epiploic appendagitis. 2. Trace left lower quadrant free fluid. Reading Location: [facility]
[2024-10-28 15:36] VITALS: BP 139/86; PULSE 96; RESP 17; O2SAT 100
[2024-10-28 16:39] VITALS: BP 139/86; PULSE 96; RESP 17; TEMP 36.6; O2SAT 100
--- NOTE | 2024-10-28 17:30 | CM.ED ---
Social Work Reason for visit: No PCP Patient verified that he does not currently have a PCP. [facility] provider list provided, patient accepting of same. No further needs identified. Chanell Dietrich, GAMING COMMISSIONER, DENTURE FINISHER
== END 2024-10-28 16:42 | disposition home or self-care (01) ==
PROVIDERS: Emergency Provider Emergency Medicine; Referring Provider Emergency Medicine; Visit Provider Emergency Medicine
DX: K63.89 Other specified diseases of intestine (principal); K59.00 Constipation, unspecified; Q43.8 Other specified congenital malformations of intestine; R30.0 Dysuria; E78.00 Pure hypercholesterolemia, unspecified; Z79.899 Other long term (current) drug therapy; Z87.891 Personal history of nicotine dependence
CPT/HCPCS: 74177; 80053; 81001; 83690; 85025; 96361; 96374; 99283; Q9967; A4216